=== PATIENT | female | born 1980 | race Asian ===

== ENCOUNTER 2016-10-21 07:56 | Emergency (ER) | payer OTHER ==
[2016-10-21 08:00] VITALS: BMI 36.1
[2016-10-21] MEDS ORDERED: SODIUM CHLORIDE 1,000 ML IV STA (08:21)
[2016-10-21] MEDS ORDERED: morphine CARPU-JECT 4 MG/1 ML DISP.SYRIN IVPUSH ONE (08:49)
[2016-10-21] MEDS ORDERED: KETOROLAC TROMETHAMINE 30 MG/1 ML VIAL IVPUSH ONE (08:49)
--- NOTE | 2016-10-21 08:49 | PDOC ---
History of Present Illness - History of Present Illness Initial Comments: 10/21/16 09:00 The patient is a year old with a past medical hx of fatty liver who presents to the ED complaining of left lower back pain for 4 days. The patient states the pain has been progressively worsening and is a 9/10. She notes she has associated fever, hematuria, nausea, and vomiting. She has had the nausea and vomiting for two days. She states she has been taking over the counter medication for the pain. She notes she had an endoscopy in the past, which showed the presence of an ulcer. She denies any trauma to her back or falls. LMP 09/24/16. The patient denies hematuria, frequency The patient denies abdominal pain The patient denies chest pain, SOB Allergies: Copper Social: Denies tobacco, alcohol, drug use Surgical: fibroids, appendectomy, cholecystectomy, tonsilectomy PCP: Dr. Lomeli <Radha Gonzalez - Last Filed: 10/21/16 10:37> - General History Source: Patient Exam Limitations: No Limitations <Gisele Rogers - Last Filed: 10/24/16 10:02> - General Chief Complaint: Pain Stated Complaint: BACK PAIN Time Seen by Provider: 10/21/16 08:20 Past History <Radha Gonzalez - Last Filed: 10/21/16 10:37> - Past Medical History Anemia: No Asthma: No Cancer: No Cardiac Disorders: No CVA: No COPD: No CHF: No Dementia: No Diabetes: No GI Disorders: Yes (ESOPHAGITIS,GERD,GASTRITIS) Disorders: No HTN: No Hypercholesterolemia: Yes Liver Disease: Yes (CHRONIC NONALCOHILC LIVER DISEASE) Seizures: No Thyroid Disease: No - Surgical History Abdominal Surgery: No Appendectomy: Yes Cardiac Surgery: No Cholecystectomy: Yes Lung Surgery: No Neurologic Surgery: No Orthopedic Surgery: No - Immunization History Td Vaccination: Yes Immunization Up to Date: Yes - Psycho/Social/Smoking Cessation Hx Anxiety: No Suicidal Ideation: No Smoking Status: No Smoking History: Never smoked Have you smoked in the past 12 months: No Number of Cigarettes Smoked Daily: 0 Hx Alcohol Use: No Drug/Substance Use Hx: No Substance Use Type: None Hx Substance Use Treatment: No <Gisele Rogers - Last Filed: 10/24/16 10:02> - Past Medical History Allergies/Adverse Reactions: Allergies Allergy/AdvReac Type Severity Reaction Status Date / Time copper [Copper] Allergy Rash Verified 10/21/16 08:00 Home Medications: Ambulatory Orders Lidocaine 5% Patch [Lidoderm Patch -] 1 patch TP DAILY PRN #30 patch 10/21/16 Methocarbamol [Robaxin -] 500 mg PO TID #21 tablet 10/21/16 Naproxen [Naprosyn -] 500 mg PO BID PRN #14 tablet 10/21/16 Oxycodone HCl/Acetaminophen [Percocet 5-325 mg Tablet -] 1 tab PO TID PRN #9 tablet MDD 3 10/21/16 Review of Systems - Review of Systems Able to Perform ROS?: Yes Comments:: 10/21/16 09:01 GENERAL/CONSTITUTIONAL: +Fever. No: chills, weakness, loss of appetite. HEAD, EYES, EARS, NOSE AND THROAT: No: change in vision, ear pain, discharge, sore throat, throat swelling. CARDIOVASCULAR: No: chest pain, lightheadedness, palpitations, syncope RESPIRATORY: No: cough, shortness of breath, wheezing, hemoptysis, stridor. GASTROINTESTINAL: +Nausea, vomiting. No: abdominal cramping, diarrhea, rectal bleeding, constipation. GENITOURINARY: +Hematuria. No: dysuria, frequency, urgency, flank pain. MUSCULOSKELETAL: +Left lower back pain. No: neck pain, joint pain, muscle swelling SKIN: No: lesions, pallor, rash or easy bruising. NEUROLOGIC: No: headache, vertigo, paresthesias, weakness ENDOCRINE: No: unexplained weight gain or loss HEMATOLOGIC/LYMPHATIC: No: anemia, easy bleeding, swelling nodes <Radha Gonzalez - Last Filed: 10/21/16 10:37> *Physical Exam - Vital Signs Last Vital Signs Temp Pulse Resp BP Pulse Ox 97.5 F L 98 H 20 130/103 98 10/21/16 07:57 10/21/16 07:57 10/21/16 07:57 10/21/16 07:57 10/21/16 07:57 - Physical Exam Comments: 10/21/16 09:01 GENERAL: The patient is in no acute distress. HEAD: Normal with no signs of trauma. EYES: PERRLA, EOMI, sclera anicteric, conjunctiva clear. ENT: Ears normal, nares patent, oropharynx clear without exudates. Moist mucous membranes. NECK: Normal range of motion, supple without lymphadenopathy, JVD, or masses. LUNGS: Breath sounds equal, clear to auscultation bilaterally. No wheezes, and no crackles. HEART:Regular rate and rhythm, normal S1 and S2 without murmur, rub or gallop. ABDOMEN: Soft, nontender, normoactive bowel sounds. No guarding, no rebound. EXTREMITIES: Normal range of motion, no edema. No clubbing or cyanosis. No erythema, or tenderness. NEUROLOGICAL: Cranial nerves II through XII grossly intact. Normal speech. No focal neurological deficits. MUSCULOSKELETAL: Back nontender to palpation, no CVA tenderness SKIN: Warm, Dry, normal turgor, no rashes or lesions noted. <Radha Gonzalez - Last Filed: 10/21/16 10:37> - Vital Signs Last Vital Signs Temp Pulse Resp BP Pulse Ox 97.5 F L 98 H 20 130/103 98 10/21/16 07:57 10/21/16 07:57 10/21/16 07:57 10/21/16 07:57 10/21/16 07:57 <Gisele Rogers - Last Filed: 10/24/16 10:02> ED Treatment Course - LABORATORY CBC & Chemistry Diagram: 10/21/16 08:40 10/21/16 08:40 - RADIOLOGY Radiograph Interpretation: 10/21/16 10:38 CT Abd/Pelv Impression: No CT evidence of urolithiasis or obstructive uropathy. Diffuse hepatic steatosis. Right hepatic lobe hemangioma without obvious interval change. Status post cholecystectomy. Bilateral ovarian cysts. Reported By: Colt Couch MD 10/21/16 1031 <Radha Gonzalez - Last Filed: 10/21/16 10:37> - LABORATORY CBC & Chemistry Diagram: 10/21/16 08:40 10/21/16 08:40 <Gisele Rogers - Last Filed: 10/24/16 10:02> Medical Decision Making - Medical Decision Making 10/21/16 08:48 A portion of this note was documented by scribe services under my direction. I have reviewed the details of the note, within reason, and agree with the documentation with the following case summary and management plan written by me. Nursing documentation reviewed and incorporated into medical decision making 36 yo F presenting to the ER with left flank/lower back pain Symptoms have been present for the past 4 days No associated fevers or chills No trauma Pain worse today Painful with movement/bending 10/21/16 09:47 Laboratory Tests 10/21/16 10/21/16 10/21/16 08:40 08:40 08:40 WBC 13.0 H Hgb 14.9 Hct 44.2 Plt Count 339 BUN 11 D Creatinine 0.6 Urine Blood 1+ H Urine Nitrite Negative Ur Leukocyte Esterase Trace H Pending Spiral CT 10/21/16 11:[address]: No CT evidence of urolithiasis or obstructive uropathy, diffuse hepatic steatosis, right hepatic lobe and hemangioma, status post cholecystotomy, bilateral ovarian cysts. Will discharge patient home. Will ask patient to take Motrin, Robaxin, Lidoderm patches for pain. Follow-up with primary care physician Dr. lomeli. Patient given copies of all of her results. Return to the ER for any other concerns or complaints. Clinical impression: musculoskeletal pain <Gisele Rogers - Last Filed: 10/24/16 10:02> *DC/Admit/Observation/Transfer - Attestations Scribe Attestion: 10/21/16 09:00 Documentation prepared by Radha Gonzalez, acting as medical housekeeper for Gisele Rogers MD/. <Radha Gonzalez - Last Filed: 10/21/16 10:37> - Discharge Dispostion Admit: No <Gisele Rogers - Last Filed: 10/24/16 10:02> Diagnosis at time of Disposition: Musculoskeletal pain - Discharge Dispostion Disposition: HOME Condition at time of disposition: Improved - Prescriptions Prescriptions: Lidocaine 5% Patch [Lidoderm Patch -] 1 patch TP DAILY PRN #30 patch PRN Reason: Pain Naproxen [Naprosyn -] 500 mg PO BID PRN #14 tablet PRN Reason: Pain Oxycodone HCl/Acetaminophen [Percocet 5-325 mg Tablet -] 1 tab PO TID PRN #9 tablet MDD 3 PRN Reason: Severe Pain Methocarbamol [Robaxin -] 500 mg PO TID #21 tablet - Referrals Referrals: Radha Lomeli MD [Primary Care Provider] - - Patient Instructions Printed Discharge Instructions: DI for Musculoskeletal Pain Additional Instructions: Violette I am sorry that you are having pain Please take pain medications as prescribed Please follow up with your primary care physician Return to the ER for any other concerns or complaints Please monitor yourself for fevers or chills - Post Discharge Activity Work/School Note: Back to Work
[2016-10-21] MEDS ORDERED: morphine CARPU-JECT 4 MG/1 ML DISP.SYRIN ONE (09:02)
[2016-10-21 09:04] LABS: BASOPHIL 0.9 % (0-2.0); EOSINOPHIL 1.6 % (0-4.5); MCH 29.4 pg (25.7-33.7); MCHC 33.7 g/dl (32.0-36.0); MEAN PLT VOLUME 7.6 fl (7.5-11.1); NEUTROPHILS 68.1 % (42.8-82.8); PLATELET COUNT 339 K/MM3 (134-434); RDW 13.1 % (11.6-15.6)
[2016-10-21 09:20] LABS: URINE APPEARANCE CLEAR; URINE BILIRUBIN NEGATIVE (NEGATIVE); URINE COLOR LTYELLOW; URINE GLUCOSE (UA) NEGATIVE (NEGATIVE); URINE KETONE NEGATIVE (NEGATIVE); URINE NITRITE NEGATIVE (NEGATIVE); URINE PROTEIN NEGATIVE (NEGATIVE); URINE UROBILINOGEN NEGATIVE E.U./dl (0.2-1.0)
[2016-10-21 09:22] LABS: URINE BLOOD 1+ (NEGATIVE); URINE LEUK ESTERASE TRACE (NEGATIVE)
[2016-10-21 09:27] LABS: ALBUMIN 3.8 g/dl (3.4-5.0); ANION GAP 5 (8-16); CALCIUM 8.7 mg/dL (8.5-10.1); CO2 28 mmol/L (21-32); GLUCOSE,RANDOM 104 mg/dL (74-106)
[2016-10-21 09:30] LABS: ALK PHOS 131 U/L (45-117); BILIRUBIN,TOTAL 0.4 mg/dL (0.2-1.0); CREATININE 0.6 mg/dL (0.55-1.02); SGOT/AST 13 U/L (15-37); SGPT/ALT 30 U/L (12-78); TOT PROT 7.5 g/dl (6.4-8.2)
[2016-10-21 09:35] LABS: URINE BACTERIA RARE /hpf (NONE SEEN); URINE MUCUS RARE; URINE RBC 2 /hpf (0-3); URINE WBC 1 /hpf (3-5)
[2016-10-21] MEDS ORDERED: KETOROLAC TROMETHAMINE 30 MG/1 ML VIAL ONE (11:53)
[2016-10-21 12:08] VITALS: BP 118/83; PULSE 72; TEMP 97.9
== END 2016-10-21 12:09 | disposition home or self-care (01) ==
LOC: JER 07:56
DX: M54.5 Low back pain (principal)
CPT/HCPCS: 36415; 74176; 80053; 81003; 81015; 84703; 85025; 87086; 99284-25

== ENCOUNTER 2016-12-04 17:35 | Emergency (ER) | payer OTHER ==
[2016-12-04 17:48] VITALS: BP 150/90; PULSE 95; TEMP 98.5; BMI 36.1
--- NOTE | 2016-12-04 18:39 | PDOC ---
History of Present Illness <Yumiko Carlisle - Last Filed: 12/04/16 23:22> - History of Present Illness Initial Comments: 12/04/16 19:19 Patient is a 36 year old female with significant medical hx of HTN, HLD, migraines, TMJ, chronic liver disease, esophagitis, and GERD who is presenting to the ED complaining of chronic headache that has worsened today. Patient reports having intermittent headache chronically for the past two years. Her headache is localized to the front and states that the pain keeps returning. She 's seen a pain managements specialist and a neurologist in the past for her headache. The patient denies any nausea, vomiting, blurry vision, visual changes , photophobia, sensory changes, weakness, problems eating, fever, or chills. The patient also has a secondary complaint of high blood pressure. She saw Dr. Dean 8 days ago and had her blood pressure medications changed. Surgical Hx: Appendectomy, cholecystectomy, tonsillectomy, myomectomy Social Hx: Denies tobacco use, alcohol use and recreational drug use <Joyce Grimm - Last Filed: 12/04/16 23:39> - General Chief Complaint: Blood Pressure Problem Stated Complaint: HIGH BP/LIGHTHEADED/PALPITATIONS/BLURRY Time Seen by Provider: 12/04/16 17:48 Past History - Past Medical History Anemia: No Asthma: No Cancer: No Cardiac Disorders: No CVA: No COPD: No CHF: No Dementia: No Diabetes: No GI Disorders: Yes (ESOPHAGITIS,GERD,GASTRITIS) Disorders: No HTN: Yes Hypercholesterolemia: Yes Liver Disease: Yes (CHRONIC NONALCOHILC LIVER DISEASE) Seizures: No Thyroid Disease: No - Surgical History Abdominal Surgery: No Appendectomy: Yes Cardiac Surgery: No Cholecystectomy: Yes Lung Surgery: No Neurologic Surgery: No Orthopedic Surgery: No - Immunization History Td Vaccination: Yes Immunization Up to Date: Yes - Psycho/Social/Smoking Cessation Hx Anxiety: No Suicidal Ideation: No Smoking Status: No Smoking History: Never smoked Have you smoked in the past 12 months: No Number of Cigarettes Smoked Daily: 0 Information on smoking cessation initiated: No Hx Alcohol Use: No Drug/Substance Use Hx: No Substance Use Type: None Hx Substance Use Treatment: No <Yumiko Carlisle - Last Filed: 12/04/16 23:22> <Joyce Grimm - Last Filed: 12/04/16 23:39> - Past Medical History Allergies/Adverse Reactions: Allergies Allergy/AdvReac Type Severity Reaction Status Date / Time copper [Copper] Allergy Rash Verified 12/04/16 17:37 Home Medications: Ambulatory Orders Acetaminophen/Caffeine/Butalb [Fioricet -] 1 tab PO Q6H PRN #20 tablet MDD 4 Atorvastatin Ca [Lipitor] 20 mg PO HS 12/04/16 Cholecalciferol (Vitamin D3) [Vitamin D3] 2,000 unit PO DAILY 12/04/16 Lisinopril 5 mg PO DAILY 12/04/16 Review of Systems - Review of Systems Comments:: 12/04/16 19:27 CONSTITUTIONAL: Absent: fever, chills, diaphoresis, generalized weakness, malaise, loss of appetite HEENT: Absent: rhinorrhea, nasal congestion, throat pain, throat swelling, difficulty swallowing, mouth swelling, ear pain, eye pain, blurry vision CARDIOVASCULAR: Present: high blood pressure Absent: palpitations, lightheadedness, chest pain, syncope, irregular heart rate , peripheral edema RESPIRATORY: Absent: cough, shortness of breath, dyspnea with exertion, orthopnea, wheezing, stridor, hemoptysis GASTROINTESTINAL: Absent: abdominal pain, abdominal distension, nausea, vomiting, diarrhea, constipation, melena, hematochezia GENITOURINARY: Absent: dysuria, frequency, urgency, hesitancy, hematuria, flank pain, genital pain MUSCULOSKELETAL: Absent: myalgia, arthralgia, joint swelling SKIN: Absent: rash, itching, pallor HEMATOLOGIC/IMMUNOLOGIC: Absent: easy bleeding, easy bruising, lymphadenopathy, frequent infections ENDOCRINE: Absent: unexplained weight gain, unexplained weight loss, heat intolerance, cold intolerance NEUROLOGIC: Present: headache Absent: focal weakness or paresthesia, dizziness, unsteady gait, seizure, mental status changes, bladder or bowel incontinence. PSYCHIATRIC: Absent: anxiety, depression, suicidal or homicidal ideation, hallucinations <Joyce Grimm - Last Filed: 12/04/16 23:39> *Physical Exam - Vital Signs Last Vital Signs Temp Pulse Resp BP Pulse Ox 98.5 F 95 H 18 150/90 100 12/04/16 17:39 12/04/16 17:39 12/04/16 17:39 12/04/16 17:39 12/04/16 17:39 <Yumiko Carlisle - Last Filed: 12/04/16 23:22> - Vital Signs Last Vital Signs Temp Pulse Resp BP Pulse Ox 98.5 F 95 H 18 150/90 100 12/04/16 17:39 12/04/16 17:39 12/04/16 17:39 12/04/16 17:39 12/04/16 17:39 - Physical Exam Comments: 12/04/16 19:29 GENERAL: Well developed, well nourished. Awake and alert. No acute distress. HEENT: Normocephalic, atraumatic. PERRLA, EOMI. No conjunctival pallor. Sclera are non- icteric. Moist mucous membranes. Oropharynx is clear. NECK: Supple. Full ROM. No JVD. Carotid pulses 2+ and symmetric, without bruits. No thyromegaly. No lymphadenopathy. CARDIOVASCULAR: Regular rate and rhythm. No murmurs, rubs, or gallops. Distal pulses are 2+ and symmetric. PULMONARY: No evidence of respiratory distress. Lungs clear to auscultation bilaterally. No wheezing, rales or rhonchi. ABDOMINAL: Soft. Non-tender. Non-distended. No rebound or guarding. No organomegaly. Normoactive bowel sounds. MUSCULOSKELETAL: Normal range of motion at all joints. No bony deformities or tenderness. No CVA tenderness. EXTREMITIES: No cyanosis. No clubbing. No edema. No calf tenderness. SKIN: Warm and dry. Normal capillary refill. No rashes. No jaundice. NEUROLOGICAL: Alert, awake, appropriate. Cranial nerves 2-12 intact. Normal speech. Gait is normal without ataxia. PSYCHIATRIC: Cooperative. Good eye contact. Appropriate mood and affect. <Joyce Grimm - Last Filed: 12/04/16 23:39> ED Treatment Course - LABORATORY CBC & Chemistry Diagram: 12/04/16 20:20 12/04/16 20:20 <Yumiko Carlisle - Last Filed: 12/04/16 23:22> - LABORATORY CBC & Chemistry Diagram: 12/04/16 20:20 12/04/16 20:20 - ADDITIONAL ORDERS Additional order review: Laboratory Results 12/04/16 18:45 Urine HCG, Qual Negative - RADIOLOGY Radiograph Interpretation: 12/04/16 23:[address] Negative exam. No discrete noncontrast CT abnormality is identified. There has been no definite interval change in comparison to a prior CT exam of . Follow-up imaging as clinically indicated. The partially imaged paranasal sinuses demonstrate no opacification. Impression: As discussed above. Reported By: Colt Couch MD Head CT Impression: No definite CT abnormality is identified. Follow-up imaging as clinically indicated. Reported By: Colt Couch MD <Joyce Grimm - Last Filed: 12/04/16 23:39> Medical Decision Making - Medical Decision Making 12/04/16 22:47 36 yo female who has had headaches in the past but presents because her symptoms were worsening -she also states she has had paraspinal cervical tenderness since she fell a month ago -no fever,no vomiting -no gross focal deficits -pt states her headaches are no longer responding to her usual medications -labs unremarkable 12/04/16 23:17 ct scan of head: negative exam ct scan cervical spine: no ct abnormality IMP- migraine headache plan-follow up with neurology <Yumiko Carlisle - Last Filed: 12/04/16 23:22> *DC/Admit/Observation/Transfer <Yumiko Carlisle - Last Filed: 12/04/16 23:22> - Attestations Scribe Attestion: 12/04/16 19:30 Documentation prepared by Joyce Grimm, acting as medical records supervisor for Yumiko Carlisle MD. <Joyce Grimm - Last Filed: 12/04/16 23:39> Diagnosis at time of Disposition: Neck muscle spasm Migraine Qualifiers: Migraine type: unspecified Status migrainosus presence: without status migrainosus Intractability: not intractable Qualified Code(s): G43.909 - Migraine, unspecified, not intractable, without status migrainosus - Discharge Dispostion Disposition: HOME Condition at time of disposition: Stable - Prescriptions Prescriptions: Acetaminophen/Caffeine/Butalb [Fioricet -] 1 tab PO Q6H PRN #20 tablet MDD 4 PRN Reason: Headache - Referrals Referrals: Radha Dean MD [Primary Care Provider] - Hanane Castañeda MD [Staff Physician] - - Patient Instructions Printed Discharge Instructions: DI for Hormonal and Tension Headaches, DI for Neck Pain Additional Instructions: please follow up with the neurologist Continue to take your medications as already prescribed by your physician
[2016-12-04] MEDS ORDERED: METOCLOPRAMIDE HCL INJECTION 10 MG/2 ML VIAL IVPUSH ONE (19:50)
[2016-12-04] MEDS ORDERED: DEXAMETHASONE SOD PHOSPHATE 10 MG/1 ML VIAL IVPB ONE (19:51)
[2016-12-04] MEDS ORDERED: SODIUM CHLORIDE 1,000 ML IV STA (19:51)
[2016-12-04] MEDS ORDERED: METOCLOPRAMIDE HCL INJECTION 10 MG/2 ML VIAL ONE (20:14)
[2016-12-04] MEDS ORDERED: DEXAMETHASONE SOD PHOSPHATE 10 MG/1 ML VIAL ONE (20:14)
[2016-12-04 20:40] LABS: BASOPHIL 0.9 % (0-2.0); EOSINOPHIL 1.8 % (0-4.5); MCH 29.2 pg (25.7-33.7); MCHC 33.9 g/dl (32.0-36.0); MEAN CELL VOLUME 86.2 fl (80-96); MEAN PLT VOLUME 7.4 fl (7.5-11.1); NEUTROPHILS 64.7 % (42.8-82.8); PLATELET COUNT 357 K/MM3 (134-434); RDW 12.9 % (11.6-15.6); WHITE BLOOD COUNT 13.5 K/mm3 (4.0-10.0)
[2016-12-04 21:10] LABS: ALBUMIN 3.9 g/dl (3.4-5.0); ANION GAP 7 (8-16); CO2 28 mmol/L (21-32); CREATININE 0.6 mg/dL (0.55-1.02); GLUCOSE,RANDOM 91 mg/dL (74-106); SGPT/ALT 37 U/L (12-78)
[2016-12-04 21:12] LABS: ALK PHOS 153 U/L (45-117); BILIRUBIN,TOTAL 0.2 mg/dL (0.2-1.0); TOT PROT 7.5 g/dl (6.4-8.2)
[2016-12-04 21:14] LABS: SGOT/AST 17 U/L (15-37)
[2016-12-04] MEDS ORDERED: ACETAMINOPHEN/CAFFEINE/BUTALBITAL 1 TAB PO ONE (23:46)
[2016-12-04] MEDS ORDERED: ACETAMINOPHEN/CAFFEINE/BUTALBITAL 1 TAB ONE (23:58)
== END 2016-12-05 00:25 | disposition home or self-care (01) ==
LOC: JER 17:35
PROC: 3E033GC Introduction of Other Therapeutic Substance into Peripheral Vein, Percutaneous Approach (ICD-10-PCS; principal; 2016-12-04)
PROC: 3E0333Z Introduction of Anti-inflammatory into Peripheral Vein, Percutaneous Approach (ICD-10-PCS; 2016-12-04)
DX: G43.909 Migraine, unspecified, not intractable, without status migrainosus (principal); M62.838 Other muscle spasm; I10 Essential (primary) hypertension; E78.00 Pure hypercholesterolemia, unspecified; K21.9 Gastro-esophageal reflux disease without esophagitis
CPT/HCPCS: 36415; 70450-TC; 72125-TC; 80053; 84703; 85025; 96374; 96375; 99282-25

== ENCOUNTER 2017-04-10 18:59 | Emergency (ER) | payer OTHER ==
[2017-04-10 19:06] VITALS: BP 129/81; PULSE 96; TEMP 97.9; BMI 36.2
[2017-04-10] MEDS ORDERED: KETOROLAC TROMETHAMINE 60 MG/2 ML VIAL IM ONE (19:59)
[2017-04-10] MEDS ORDERED: KETOROLAC TROMETHAMINE 60 MG/2 ML VIAL ONE (20:01)
--- NOTE | 2017-04-10 20:02 | PDOC ---
History of Present Illness - General History Source: Patient Exam Limitations: No Limitations - History of Present Illness Initial Comments: 04/10/17 20:15 The patient is a 36 year old female, with a significant past medical history of hypertension, hyperlipidemia, and migraines, who presents with atraumatic right knee pain for 1 week. Patient reports increased swelling at the right knee. She reports shes been limping secondary to right knee pain. Today, the patient wrapped her knee with an RIVER bandage with no relief of pain.She denies any trauma, strenuous activity, heavy lifting, or exercise change. Pt reports she has been taking Aleve for the pain with no relief. She denies any recent travel. No history of problems with joints. Allergies: None reported PCP: Dr. Radha Dean <Gunner Lawler - Last Filed: 04/10/17 20:15> - General History Source: Patient Exam Limitations: No Limitations <Anisa Merrill - Last Filed: 04/10/17 20:25> - General Chief Complaint: Pain Stated Complaint: SWOLLEN RT LEG Time Seen by Provider: 04/10/17 19:26 Past History <Gunner Lawler - Last Filed: 04/10/17 20:15> - Past Medical History Anemia: No Asthma: No Cancer: No Cardiac Disorders: No CVA: No COPD: No CHF: No Dementia: No Diabetes: No GI Disorders: Yes (ESOPHAGITIS,GERD,GASTRITIS) Disorders: No HTN: Yes Hypercholesterolemia: Yes Liver Disease: Yes (CHRONIC NONALCOHILC LIVER DISEASE) Seizures: No Thyroid Disease: No - Surgical History Abdominal Surgery: No Appendectomy: Yes Cardiac Surgery: No Cholecystectomy: Yes Lung Surgery: No Neurologic Surgery: No Orthopedic Surgery: No - Immunization History Td Vaccination: Yes Immunization Up to Date: Yes - Psycho/Social/Smoking Cessation Hx Anxiety: No Suicidal Ideation: No Smoking Status: No Smoking History: Never smoked Have you smoked in the past 12 months: No Number of Cigarettes Smoked Daily: 0 Information on smoking cessation initiated: No Hx Alcohol Use: No Drug/Substance Use Hx: No Substance Use Type: None Hx Substance Use Treatment: No <Anisa Merrill - Last Filed: 04/10/17 20:25> - Past Medical History Allergies/Adverse Reactions: Allergies Allergy/AdvReac Type Severity Reaction Status Date / Time copper [Copper] Allergy Rash Verified 04/10/17 19:06 Home Medications: Ambulatory Orders Atorvastatin Ca [Lipitor] 20 mg PO HS 12/04/16 Cholecalciferol (Vitamin D3) [Vitamin D3] 2,000 unit PO DAILY 12/04/16 Lisinopril 5 mg PO DAILY 12/04/16 Gabapentin 300 mg PO ASDIR 04/10/17 Pramipexole Di-HCl [Mirapex] 1 mg PO ASDIR 04/10/17 Review of Systems - Review of Systems Musculoskeletal: Yes: Symptoms Reported, See HPI, Joint Pain, Joint Swelling, Other (Right knee pain and associated swelling). No: Back Pain, Muscle Weakness , Joint Stiffness Neurological: No: Numbness, Tingling Hematologic/Lymphatic: No: Blood Clots All Other Systems: Reviewed and Negative <Gunner Lawler - Last Filed: 04/10/17 20:15> *Physical Exam - Vital Signs Last Vital Signs Temp Pulse Resp BP Pulse Ox 97.9 F 96 H 19 129/81 98 04/10/17 19:04 04/10/17 19:04 04/10/17 19:04 04/10/17 19:04 04/10/17 19:04 - Physical Exam General Appearance: Yes: Nourished, Appropriately Dressed. No: Apparent Distress Respiratory/Chest: positive: Lungs Clear, Normal Breath Sounds Cardiovascular: positive: Regular Rhythm, Regular Rate Vascular Pulses: Dorsalis-Pedis (R): 2+, Doralis-Pedis (L): 2+ Musculoskeletal: positive: Normal Inspection Extremity: positive: Normal Capillary Refill, Normal Inspection ( No swelling. Mild tenderness reproduce along medial and lateral aspects of knee with worse tenderness in posterior Fossa. No crepitus or step-offs. Patella is normal. Range of motion is intact. Walk s with limp but stable. Neurovascularly intact distal to knees), Normal Range of Motion. negative: Calf Tenderness, Erythema Integumentary: positive: Normal Color, Dry, Warm Neurologic: positive: therapist occupational II-XII NML intact, Fully Oriented, Alert, Normal Mood/ Affect, Normal Response, Motor Strength 5/5 <Gunner Lawler - Last Filed: 04/10/17 20:15> - Vital Signs Last Vital Signs Temp Pulse Resp BP Pulse Ox 97.9 F 96 H 19 129/81 98 07/04/17 19:04 04/10/17 19:04 04/10/17 19:04 04/10/17 19:04 04/10/17 19:04 <Anisa Merrill - Last Filed: 04/10/17 20:25> ED Treatment Course - Medications Given in the ED: ED Medications Discontinued Medications Generic Name Dose Route Start Last Admin Trade Name Shakaq PRN Reason Stop Dose Admin Ketorolac Tromethamine 60 mg 04/10/17 19:59 04/10/17 20:09 Toradol Injection - IM 04/10/17 20:00 60 mg ONCE ONE Administration <Gunner Lawler - Last Filed: 04/10/17 20:15> Progress Note - Progress Note Progress Note: Knee strain Lucrecia understands x-rays not indicated as his soft tissue problem. Immobilizer placed, NSAIDs encouraged and given dose of Toradol here. Will follow-up with orthopedist this week for further evaluation and testing as needed. <Anisa Merrill - Last Filed: 04/10/17 20:25> *DC/Admit/Observation/Transfer - Attestations Scribe Attestion: 04/10/17 20:20 Documentation prepared by Gunner Lawler, acting as medical accountant for Anisa Merrill NP. <Gunner Lawler - Last Filed: 04/10/17 20:15> - Discharge Dispostion Admit: No <Anisa Merrill - Last Filed: 04/10/17 20:25> Diagnosis at time of Disposition: Strain of right knee Qualifiers: Encounter type: initial encounter Qualified Code(s): S86.911A - Strain of unspecified muscle(s) and tendon(s) at lower leg level, right leg, initial encounter - Discharge Dispostion Disposition: HOME Condition at time of disposition: Stable - Referrals Referrals: Radha Dean MD [Primary Care Provider] - Kaz Lechuga MD [Staff Physician] - - Patient Instructions Printed Discharge Instructions: DI for Knee Sprain Additional Instructions: Rest, ice to area on and off for 15 minutes 4-6 times a day Avoid heavy lifting or exercise until pain and swelling is resolved or until further directed Keep area highly elevated to reduce swelling Use splints/River wrap as directed Followup with orthopedist in one to 2 days if not improving, if significantly improved may wait one week for followup with orthopedist May use ibuprofen 2-200 mg tablets every 6 hours as needed for pain
== END 2017-04-10 20:23 | disposition home or self-care (01) ==
LOC: JERFT 18:59
PROC: 3E0233Z Introduction of Anti-inflammatory into Muscle, Percutaneous Approach (ICD-10-PCS; principal; 2017-04-10)
DX: S86.911A Strain of unspecified muscle(s) and tendon(s) at lower leg level, right leg, initial encounter (principal); I10 Essential (primary) hypertension; E78.5 Hyperlipidemia, unspecified; G43.909 Migraine, unspecified, not intractable, without status migrainosus; X58.XXXA Exposure to other specified factors, initial encounter; Y93.89 Activity, other specified; Y92.89 Other specified places as the place of occurrence of the external cause
CPT/HCPCS: 96372; 99281-25

== ENCOUNTER 2017-10-01 14:50 | Emergency (ER) | payer OTHER ==
[2017-10-01 14:53] VITALS: BP 158/90; PULSE 100; TEMP 98.6; BMI 37.0
[2017-10-01 15:32] LABS: URINE APPEARANCE SLCLOUDY; URINE BILIRUBIN NEGATIVE (NEGATIVE); URINE BLOOD 1+ (NEGATIVE); URINE COLOR LTYELLOW; URINE GLUCOSE (UA) NEGATIVE (NEGATIVE); URINE KETONE NEGATIVE (NEGATIVE); URINE NITRITE NEGATIVE (NEGATIVE); URINE PROTEIN NEGATIVE (NEGATIVE); URINE UROBILINOGEN NEGATIVE mg/dL (0.2-1.0)
--- NOTE | 2017-10-01 15:33 | PDOC ---
History of Present Illness - General Chief Complaint: Lightheaded Stated Complaint: VOMITING, Time Seen by Provider: 10/01/17 15:20 History Source: Patient Exam Limitations: No Limitations - History of Present Illness Initial Comments: 10/01/17 15:28 Patient came to emergency department for evaluation of dizziness since yesterday. suffers from sinusitis and a cold for the past few days. Has been using Tylenol only for pain relief. But became concerned about the dizziness. was so much so did not drive and took a taxi to the emergency department. Denies fever, denies purulent drainage from nose but has some congestion worse on the right than the left ear and clear drainage from nose. States also has frontal fullness worse on the right than the left and congestion. Denies cough, denies any nausea but has some mild generalized epigastric pain. Denies dysuria, no problems with bowel no nausea vomiting diarrhea or constipation. Denies possibility of Timing/Duration: unsure, 24 hours Past History - Travel Traveled outside of the country in the last 30 days: No Close contact w/someone who was outside of country & ill: No - Past Medical History Allergies/Adverse Reactions: Allergies Allergy/AdvReac Type Severity Reaction Status Date / Time copper [Copper] Allergy Rash Verified 10/01/17 14:52 Home Medications: Ambulatory Orders Amox-Tr/K Cl [Augmentin 875Mg Tablet] 1 tab PO BID #20 tablet 10/01/17 Anemia: No Asthma: No Cancer: No Cardiac Disorders: No CVA: No COPD: No CHF: No Dementia: No Diabetes: No GI Disorders: Yes (ESOPHAGITIS,GERD,GASTRITIS) Disorders: No HTN: Yes Hypercholesterolemia: Yes Liver Disease: Yes (CHRONIC NONALCOHILC LIVER DISEASE) Seizures: No Thyroid Disease: No - Surgical History Abdominal Surgery: No Appendectomy: Yes Cardiac Surgery: No Cholecystectomy: Yes Lung Surgery: No Neurologic Surgery: No Orthopedic Surgery: No - Immunization History Td Vaccination: Yes Immunization Up to Date: Yes - Suicide/Smoking/Psychosocial Hx Smoking Status: No Smoking History: Never smoked Have you smoked in the past 12 months: No Number of Cigarettes Smoked Daily: 0 Hx Alcohol Use: No Drug/Substance Use Hx: No Substance Use Type: None Hx Substance Use Treatment: No Review of Systems - Review of Systems Able to Perform ROS?: Yes Is the patient limited [place] proficient: Yes Constitutional: Yes: Symptoms Reported, See HPI, Malaise HEENTM: Yes: Symptoms Reported, See HPI, Throat Swelling. No: Blurred Vision, Tearing, Recent change in vision Respiratory: Yes: Symptoms reported, See HPI, Cough, Shortness of Breath. No: Wheezing ABD/GI: Yes: See HPI. No: Symptoms Reported : No: Symptoms Reported Musculoskeletal: Yes: Symptoms Reported Integumentary: Yes: See HPI. No: Symptoms Reported Neurological: Yes: Symptoms reported, See HPI, Headache All Other Systems: Reviewed and Negative *Physical Exam - Vital Signs Last Vital Signs Temp Pulse Resp BP Pulse Ox 98.6 F 100 H 18 158/90 97 10/01/17 14:52 10/01/17 14:52 10/01/17 14:52 10/01/17 14:52 10/01/17 14:52 - Physical Exam General Appearance: Yes: Nourished, Appropriately Dressed, Mild Distress HEENT: positive: AMBER, Normal ENT Inspection, Nasal Congestion, Rhinorrhea, Sinus Tenderness (worse on the right side). negative: TMs Normal (right TM congested and landmarks mildly dulled, left TM intact with good landmarks), Pharynx Normal Neck: positive: Supple. negative: Tender, Lymphadenopathy (R), Lymphadenopathy (L) Respiratory/Chest: positive: Lungs Clear, Normal Breath Sounds Gastrointestinal/Abdominal: positive: Normal Bowel Sounds, Soft. negative: Tender Musculoskeletal: positive: Normal Inspection Extremity: positive: Normal Capillary Refill, Normal Inspection, Normal Range of Motion Integumentary: positive: Normal Color, Dry, Warm, Pale Neurologic: positive: product safety administrator II-XII NML intact, Fully Oriented, Alert, Normal Mood/ Affect, Normal Response, Motor Strength 5/5, Other (negative bear in a test, no nystagmus, no reproducible tenderness with head movement although feels some mild fullness one lying flat.) Medical Decision Making - Medical Decision Making 10/01/17 15:34 Mild vertigo, probably related to a sinus fullness/congestion possible infection. Will obtain UCG and sent for CT to rule out significant 10/01/17 17:28 X-ray shows maxillary sinusitis, will treat with Augmentin and conservative measures. Have follow-up with PMD in the next 2 days. *DC/Admit/Observation/Transfer Diagnosis at time of Disposition: Sinusitis, acute Qualifiers: Sinusitis location: maxillary Recurrence: not specified as recurrent Qualified Code(s): J01.00 - Acute maxillary sinusitis, unspecified - Discharge Dispostion Disposition: HOME Condition at time of disposition: Stable Admit: No - Referrals - Patient Instructions Printed Discharge Instructions: DI for Sinusitis Additional Instructions: Rest, drink lots of fluids: Teas, water, soups Saltwater gargles. Consider humidifier in room at night Steamy showers/seem to face break up mucus Avoid contact with allergens, exposure to pollens, close windows on a windy day Lots of handwashing and good hygiene Continue [id number]-[id number] medications for symptomatic relief- may use allergic eyedrops for itching I Continue antihistamines daily until pollen season is over; Zyrtec, Claritin, Tequila during the daytime and Benadryl at nighttime as will make sleepy Tylenol or Motrin for fever and pain Into new Augmentin as directed Followup with private physician in one to 2 days as needed Consider following up with an freight rate clerk/founder and president for skin testing and possible allergy shots Return to emergency department for worsened symptoms, fevers, dehydration - Post Discharge Activity Forms/Work/School Notes: Back to Work
[2017-10-01 15:35] LABS: URINE LEUK ESTERASE 2+ (NEGATIVE)
[2017-10-01] MEDS ORDERED: MECLIZINE HCL 25 MG TABLET (FP) PO ONE (15:35)
[2017-10-01 15:36] LABS: URINE HYALINE CAST 1 /lpf; URINE MUCUS RARE; URINE RBC 5 /hpf (0-3); URINE WBC 6 /hpf (3-5)
[2017-10-01] MEDS ORDERED: MECLIZINE HCL 25 MG TABLET (FP) ONE (15:46)
[2017-10-01 18:56] LABS: URINE LEUK ESTERASE Negative (NEGATIVE)
== END 2017-10-01 17:40 | disposition home or self-care (01) ==
LOC: JER 14:50
DX: J01.00 Acute maxillary sinusitis, unspecified (principal)
CPT/HCPCS: 70486-TC; 81003; 81015; 84703; 99282-25

== ENCOUNTER 2018-02-18 15:52 | Emergency (ER) | payer OTHER ==
[2018-02-18 15:59] VITALS: BP 140/79; PULSE 97; TEMP 98.2; BMI 33.8
--- NOTE | 2018-02-18 15:59 | PDOC ---
Rapid Medical Evaluation Chief Complaint: Pain, Acute Time Seen by Provider: 02/18/18 15:56 Medical Evaluation: Allergies Allergy/AdvReac Type Severity Reaction Status Date / Time copper [Copper] Allergy Rash Verified 02/18/18 15:56 02/18/18 15:57 I have performed a brief in-person evaluation of this patient. The patient presents with a chief complaint of: left elbow pain s/p striking it on sink Pertinent physical exam findings: pain worsens with supination of left forearm. No bony tenderness. I have ordered the following: upreg, xray, tylenol The patient will proceed to the ED for further evaluation. Discharge Disposition - Diagnosis Elbow pain, left - Referrals - Patient Instructions - Post Discharge Activity
[2018-02-18] MEDS ORDERED: ACETAMINOPHEN 325 MG TABLET (FP) PO ONE (16:00)
[2018-02-18] MEDS ORDERED: ACETAMINOPHEN 325 MG TABLET (FP) ONE (16:58)
--- NOTE | 2018-02-18 17:19 | PDOC ---
History of Present Illness - General Chief Complaint: Pain, Acute Stated Complaint: LT ARM PAIN Time Seen by Provider: 02/18/18 15:56 - History of Present Illness Initial Comments: 37-year-old female presents for evaluation of left elbow pain. She states she banged her elbow into the sink about week ago. Since that time her elbow is become stiff and painful. She points to the lateral epicondyle as the area of discomfort. Pain is described as achy exacerbated with motion relieved with rest free of radiation. No prior problems with left elbow. She does have problems gripping and grasping. 02/18/18 17:18 Past History - Past Medical History Allergies/Adverse Reactions: Allergies Allergy/AdvReac Type Severity Reaction Status Date / Time copper [Copper] Allergy Rash Verified 02/18/18 15:56 Home Medications: Ambulatory Orders NK [No Known Home Medication] 02/18/18 Anemia: No Asthma: No Cancer: No Cardiac Disorders: No CVA: No COPD: No CHF: No Dementia: No Diabetes: No GI Disorders: Yes (ESOPHAGITIS,GERD,GASTRITIS) Disorders: No HTN: Yes Hypercholesterolemia: Yes Liver Disease: Yes (CHRONIC NONALCOHILC LIVER DISEASE) Seizures: No Thyroid Disease: No - Surgical History Abdominal Surgery: No Appendectomy: Yes Cardiac Surgery: No Cholecystectomy: Yes Lung Surgery: No Neurologic Surgery: No Orthopedic Surgery: No - Immunization History Td Vaccination: Yes Immunization Up to Date: Yes - Suicide/Smoking/Psychosocial Hx Smoking Status: No Smoking History: Never smoked Have you smoked in the past 12 months: No Number of Cigarettes Smoked Daily: 0 Information on smoking cessation initiated: No Hx Alcohol Use: No Drug/Substance Use Hx: No Substance Use Type: None Hx Substance Use Treatment: No Review of Systems - Review of Systems Musculoskeletal: Yes: Joint Pain All Other Systems: Reviewed and Negative *Physical Exam - Vital Signs Last Vital Signs Temp Pulse Resp BP Pulse Ox 98.2 F 97 H 16 140/79 100 02/18/18 15:57 02/18/18 15:57 02/18/18 15:57 02/18/18 15:57 02/18/18 15:57 - Physical Exam Comments: Double skin color and temperature are normal. She has full range of motion. With stiffness a terminal ranges. There is tenderness over the lateral epicondyle. Her upper extremity compartments are soft and nontender. She has no gross sensorimotor deficits. She is are vastly intact. No evidence of instability. 02/18/18 17:19 ED Treatment Course - ADDITIONAL ORDERS Additional order review: Laboratory Results 02/18/18 16:17 Urine HCG, Qual Negative - Medications Given in the ED: ED Medications Discontinued Medications Generic Name Dose Route Start Last Admin Trade Name Ivan PRN Reason Stop Dose Admin Acetaminophen 650 mg 02/18/18 16:00 02/18/18 16:57 Tylenol - PO 02/18/18 16:01 650 mg ONCE ONE Administration *DC/Admit/Observation/Transfer Diagnosis at time of Disposition: Elbow pain, left, Contusion of elbow - Discharge Dispostion Disposition: HOME Condition at time of disposition: Stable Decision to Admit order: No - Referrals Referrals: Ricardo Bhandari MD [Primary Care Provider] - Ritesh Mccormack MD [Staff Physician] - - Patient Instructions Printed Discharge Instructions: DI for Contusion, Contusion Additional Instructions: This is a bruise on your elbow. Return to the emergency room if symptoms worsen or go unresolved prior to follow-up with orthopedic surgery. - Post Discharge Activity
== END 2018-02-18 17:48 | disposition home or self-care (01) ==
LOC: JERFT 15:52
DX: S50.02XA Contusion of left elbow, initial encounter (principal); W22.8XXA Striking against or struck by other objects, initial encounter; Y93.89 Activity, other specified; Y92.038 Other place in apartment as the place of occurrence of the external cause; Y99.8 Other external cause status
CPT/HCPCS: 73070-TC-LT-FY; 84703; 99281-25

== ENCOUNTER 2018-05-27 11:16 | Day surgery (SDC) | payer OTHER ==
[2018-05-27 12:11] VITALS: BMI 35.6
[2018-05-27 13:40] VITALS: TEMP 98
--- NOTE | 2018-05-27 13:43 | PROC ---
Endoscopy Procedure Endoscopy procedure completed. Please see scanned procedure report.
[2018-05-27 14:42] VITALS: BP 132/81; PULSE 82
--- NOTE | 2018-05-30 13:10 | PATH ---
Surgical Pathology Report Patient Name: DORA ALCARAZ [facility]. Rec. #: [id number] /Age/Gender: 1980 (Age: 37) / F Account: [id number] Location: [facility]-ENDOSCOPY Taken: 05/27/2018 Received: 05/28/2018 Reported: 05/30/2018 Physicians: Aaron Du M.D. Specimen(s) Received A: BX DUODENUM B: BX ANTRUM AND BODY C: ASCENDING COLON POLYP Clinical History Postoperative diagnosis: Gastritis, fundus polyp, colon polyp Final Diagnosis A. DUODENUM, BIOPSY: DUODENAL MUCOSA WITH NO PATHOLOGIC FINDINGS. B. ANTRUM AND BODY (FUNDUS POLYP), BIOPSY: POLYPOID GASTRIC MUCOSA SHOWING XANTHOMA. (SEE NOTE) MILD CHRONIC GASTRITIS. IMMUNOSTAIN IS NEGATIVE FOR H.PYLORI ORGANISMS. Note: The xanthoma is comprised of aggregates of histiocytes within the lamina propria which are positive for CD 68 and negative for cytokeratin AE 1/3 (performed at [place], [place]: [id number]). This find supports the diagnosis. C. ASCENDING COLON, POLYP, POLYPECTOMY: TUBULAR ADENOMA. Electronically Signed Anisha Urbian M.D. Gross Description A. Received in formalin, labeled "biopsy duodenum" are 2 elise, irregular portions of soft tissue averaging 0.3 cm. in greatest dimension. The specimens are submitted in toto in one cassette. B. Received in formalin, labeled "biopsy antrum and body" are 2 elise, irregular portions of soft tissue averaging 0.3 cm. in greatest dimension. The specimens are submitted in toto in one cassette. C. Received in formalin, labeled "polyp ascending colon" is a elise, polypoid portion of soft tissue measuring 0.7 cm in greatest dimension. The specimen is submitted in toto in one cassette. [facility]/05/28/2018
== END 2018-05-27 14:42 | disposition home or self-care (01) ==
LOC: JASU-ENDO 11:16
PROVIDERS: ATTEND Internal Medicine Gastroenterology
PROC: 3E0H8GC Introduction of Other Therapeutic Substance into Lower GI, Via Natural or Artificial Opening Endoscopic (ICD-10-PCS; 2018-05-27)
PROC: 0DBK8ZX Excision of Ascending Colon, Via Natural or Artificial Opening Endoscopic, Diagnostic (ICD-10-PCS; principal; 2018-05-27 12:00)
DX: Z12.11 Encounter for screening for malignant neoplasm of colon (principal); Z83.71 Family history of colonic polyps
CPT/HCPCS: 84703; 88305-TC; 88342-TC

== ENCOUNTER 2018-08-15 15:45 | Emergency (ER) | payer OTHER ==
[2018-08-15 16:00] VITALS: TEMP 98.2; BMI 37.8
--- NOTE | 2018-08-15 16:03 | PDOC ---
Rapid Medical Evaluation Chief Complaint: Pain, Acute Time Seen by Provider: 08/15/18 16:00 Medical Evaluation: Allergies Allergy/AdvReac Type Severity Reaction Status Date / Time copper [Copper] Allergy Rash Verified 02/18/18 15:56 Vital Signs Temp Pulse Resp BP Pulse Ox 98.2 F 95 H 18 146/110 H 99 08/15/18 15:54 08/15/18 15:54 08/15/18 15:54 08/15/18 15:54 08/15/18 15:54 08/15/18 16:01 I have performed a brief in-person evaluation of this patient. The patient presents with a chief complaint of: sent by [facility] for urine testing - r/o stones? C/O flank pain x 2 months Pertinent physical exam findings: nontoxic I have ordered the following: Urine The patient will proceed to the ED for further evaluation.
--- NOTE | 2018-08-15 16:30 | PDOC ---
History of Present Illness - General Chief Complaint: Pain, Acute Stated Complaint: kidney pain, chest tightness Time Seen by Provider: 08/15/18 16:00 History Source: Patient Exam Limitations: No Limitations - History of Present Illness Initial Comments: 08/15/18 16:23 The patient is a 38F with a PMH of esophagitis, GERD, gastritis, and colonic polyps s/p resection who presents to the ER with worsening b/l flank pain. The patient states that she's had 1 month of worsening suprapubic abdominal pain which she describes as sharp, intermittent, and radiates to her b/l flanks. The patient states that the pain has worsened acutely today. She was seeing her GI doctor who recommended her to come to the ER. She admits to chills and dysuria. She denies CP but admits to intermittent chest tightness which she cannot describe further. She denies any hx of cancer, DVT's, hemoptysis, long car rides or plane trips, leg swelling, and recent surgery. GI: Harris Nephro: Lita [place] : Esther Neuro: Thomas Past History - Past Medical History Allergies/Adverse Reactions: Allergies Allergy/AdvReac Type Severity Reaction Status Date / Time copper [Copper] Allergy Rash Verified 08/15/18 16:01 Home Medications: Ambulatory Orders NK [No Known Home Medication] 08/15/18 Anemia: No Asthma: No Cancer: No Cardiac Disorders: No CVA: No COPD: No CHF: No Dementia: No Diabetes: No GI Disorders: Yes (ESOPHAGITIS,GERD,GASTRITIS, fatty liver) Disorders: No HTN: Yes Hypercholesterolemia: Yes Liver Disease: Yes (CHRONIC NONALCOHILC LIVER DISEASE) Seizures: No Thyroid Disease: No - Surgical History Abdominal Surgery: No Appendectomy: Yes Cardiac Surgery: No Cholecystectomy: Yes Lung Surgery: No Neurologic Surgery: No Orthopedic Surgery: No - Immunization History Td Vaccination: Yes Immunization Up to Date: Yes - Suicide/Smoking/Psychosocial Hx Smoking Status: No Smoking History: Never smoked Have you smoked in the past 12 months: No Number of Cigarettes Smoked Daily: 0 Information on smoking cessation initiated: No Hx Alcohol Use: No Drug/Substance Use Hx: No Substance Use Type: None Hx Substance Use Treatment: No Review of Systems - Review of Systems Able to Perform ROS?: Yes Comments:: 08/15/18 16:51 GENERAL/CONSTITUTIONAL: No fever or chills. No weakness. HEAD, EYES, EARS, NOSE AND THROAT: No change in vision. No ear pain or discharge. No sore throat. CARDIOVASCULAR: No chest pain, palpitations, or lightheadedness. RESPIRATORY: No cough, wheezing, shortness of breath, or hemoptysis. GASTROINTESTINAL: No nausea, vomiting, diarrhea, constipation, or abdominal pain. GENITOURINARY: Positive for dysuria and flank pain. No frequency, hematuria, or change in urination. MUSCULOSKELETAL: No joint or muscle swelling or pain. No neck or back pain. SKIN: No rash or lesions. NEUROLOGIC: No headache, numbness, tingling, focal weakness, loss of consciousness, or change in strength/sensation. Is the patient limited Urdu proficient: No *Physical Exam - Vital Signs Last Vital Signs Temp Pulse Resp BP Pulse Ox 98.2 F 95 H 18 146/110 H 99 08/15/18 15:54 08/15/18 15:54 08/15/18 15:54 08/15/18 15:54 08/15/18 15:54 - Physical Exam Comments: 08/15/18 16:57 GENERAL: Well developed, well nourished. Awake and alert. No acute distress. HEENT: Normocephalic, atraumatic. Hearing grossly normal. Moist mucous membranes. PERRLA, EOMI. No conjunctival pallor. Sclera are non-icteric. NECK: Supple. Full ROM. CARDIOVASCULAR: Regular rate and rhythm. No murmurs, rubs, or gallops. PULMONARY: No evidence of respiratory distress. Lungs clear to auscultation bilaterally. No wheezing, rales or rhonchi. ABDOMINAL: Soft. TTP over epigastrium, suprapubic abdomen. Non-distended. No rebound or guarding. GENITOURINARY: CVA tenderness bilaterally. MUSCULOSKELETAL: Normal range of motion at all joints. No bony deformities or tenderness. EXTREMITIES: No cyanosis. No clubbing. No edema. No calf tenderness or swelling. SKIN: Warm and dry. Normal capillary refill. No rashes. No jaundice. NEUROLOGICAL: Alert, awake, appropriate. Cranial nerves 2-12 grossly intact. Normal speech. Gait is normal without ataxia. PSYCHIATRIC: Cooperative. Good eye contact. Appropriate mood and affect. ED Treatment Course - LABORATORY CBC & Chemistry Diagram: 08/15/18 17:19 08/15/18 17:19 Medical Decision Making - Medical Decision Making 08/15/18 17:04 The patient is a 38F with a PMH of gastritis, esophagitis, and GERD who presents to the ER with complaints of worsening flank pain concerned for renal CA, nephrolithiasis, pyelo, UTI, pancreatitis, RUQ pathology. Pending labs and will perform CTAP with IV contrast. Pt otherwise stable and well appearing. 08/15/18 20:00 CT impression: No CT findings of acute pathology are identified. A 2.3 cm involuting right ovarian cyst/follicle is noted. The remainder of the exam demonstrates no definite interval change in comparison to a prior CT exam of 07/11/2016. Diffuse hepatic steatosis. Stable 4 x 2.4 cm right hepatic lobe hemangioma. Status post cholecystectomy. Very small umbilical hernia containing fat only. CBC, CMP WNL. UA shows trace LE with 2 WBC. Will d/w plate developer for UTI tx. *DC/Admit/Observation/Transfer Diagnosis at time of Disposition: Flank pain Abdominal pain Qualifiers: Abdominal location: generalized Qualified Code(s): R10.84 - Generalized abdominal pain - Discharge Dispostion Disposition: HOME Condition at time of disposition: Stable Decision to Admit order: No - Referrals Referrals: Ricardo Bhandari MD [Primary Care Provider] - Andrea Phillips MD [Staff Physician] - - Patient Instructions Printed Discharge Instructions: DI for Flank Pain Additional Instructions: Please follow up with your primary care physician in 2-3 days. Please also follow up with Dr. Alcantara within 1 week. Please return to the ER if you have any signs or symptoms of chest pain, shortness of breath, uncontrollable fever, chills, nausea, vomiting, numbness, tingling, or weakness in any part of your body, changes in vision, or slurred speech. Please return to the ER if symptoms persist, worsen, or new symptoms arise. - Post Discharge Activity
[2018-08-15] MEDS ORDERED: FAMOTIDINE 20 MG/50 ML IVPB 20 MG/50 ML MG IVPB ONE ×2 (16:53→17:12)
[2018-08-15] MEDS ORDERED: SODIUM CHLORIDE 0.9% 1000 ML INFUS.BAG IV ONE (16:53)
[2018-08-15 16:55] LABS: URINE APPEARANCE CLEAR; URINE BILIRUBIN NEGATIVE (<2.0 mg/dL); URINE COLOR YELLOW; URINE GLUCOSE (UA) NEGATIVE (NEGATIVE); URINE KETONE NEGATIVE (NEGATIVE); URINE LEUK ESTERASE TRACE (NEGATIVE); URINE NITRITE NEGATIVE (NEGATIVE); URINE PROTEIN NEGATIVE (NEGATIVE); URINE UROBILINOGEN NEGATIVE mg/dL (0.2-1.0)
[2018-08-15 16:56] LABS: HCG,QUALITATIVE URINE Negative
[2018-08-15 17:13] LABS: EPI CELLS RARE /HPF (FEW); URINE MUCUS MANY
--- NOTE | 2018-08-15 17:22 | PDOC ---
Attending Attestation - [facility] HPI: 08/15/18 17:42 Patient is a 38 year old female with a significant past medical history of esophagitis, GERD, gastritis, and colonic polyps s/p resection, who presents to the ED with complaints of bilateral abdominal pain. Patient reports experiencing suprapubic abdominal pain that she states began x1 month ago and has gradually gotten worse over time, prompting her to come into the ED for further evaluation. She reports abdominal pain is a sharp constant pain that has begun to radiate to her flanks bilaterally. Patient reports seeing her GI physician who advised she come into the ED for evaluation. She reports experiencing associated symptoms of chills and dysuria. Denies chest pain, Sob. Denies nausea, vomiting. Denies contact with sick individuals, out of state travelling. Denies fevers, chills. Denies any other symptoms. Allergies: Copper Social history: No smoking, No alcohol. No illicit drugs. Surgical history: None PMD: Dr. Bhandari - Physicial Exam PE: 08/15/18 17:42 GENERAL: +Obese. Awake, alert, and fully oriented, in no acute distress HEAD: No signs of trauma EYES: PERRLA, EOMI, sclera anicteric, conjunctiva clear ENT: Auricles normal inspection, hearing grossly normal, nares patent, Moist mucosa NECK: Normal ROM, supple, JVD, or masses ABDOMEN: +Diffuse abdominal tenderness. Soft, normoactive bowel sounds. No guarding, no rebound. No masses EXTREMITIES: Normal range of motion, no edema. No clubbing or cyanosis. No cords, erythema, or tenderness NEUROLOGICAL: Cranial nerves II through XII grossly intact. Normal speech, normal gait SKIN: Warm, Dry, normal turgor, no rashes or lesions noted. <Bryan Wyatt - Last Filed: 08/15/18 17:42> - Resident Resident Name: Riccardo Mcduffie - ED Attending Attestation I have performed the following: I have examined & evaluated the patient, The case was reviewed & discussed with the resident, I agree w/resident's findings & plan, Exceptions are as noted - Medical Decision Making 08/15/18 17:18 A portion of this note was documented by scribe services under my direction. I have reviewed the details of the note, within reason, and agree with the documentation with the following case summary and management plan written by me. Patient treated in the ED. Nursing notes are reviewed and incorporated into the medical decision-making. Vital signs reviewed. Peripheral IV access obtained by the nurse, laboratory studies are drawn and sent, reviewed and interpreted by myself. Vital Signs Temp Pulse Resp BP Pulse Ox 98.2 F 95 H 18 146/110 H 99 08/15/18 15:54 08/15/18 15:54 08/15/18 15:54 08/15/18 15:54 08/15/18 15:54 38-year-old female patient with history of GERD and obesity presents with diffuse abdominal pain and bilateral flank pain for approximately 1 month. The patient has been evaluated in outpatient by a hydrologist and referred to a urologist for intermittent flank pains and intermittent hematuria and dysuria. The patient reports that she had a referral for an outpatient ultrasound but has not received the. She denies any fevers or chills. Does report intermittent dysuria and chills. Patient is being evaluated for potential renal cancer as the patient's family has a history of kidney cancer. Several months ago, the patient reportedly had an outpatient endoscopy and colonoscopy that demonstrated polyps that was removed. Reported that it was not cancer that time. Given her diffuse abdominal pain for one month, as well as urological symptoms, we'll need to investigate. We'll obtain a CAT scan abdomen pelvis. Patient came to the ER She had acutely worsening pain. Differential includes cystitis, pyelonephritis, malignancy, colitis, diverticulitis, other acute pathologies. We 'll obtain tests and reassess. 08/15/18 19:12 CBC, BMP 08/15/18 17:19 08/15/18 17:19 CMP Sodium 139 mmol/L (136-145) 08/15/18 17:19 Potassium 4.1 mmol/L (3.5-5.1) 08/15/18 17:19 Chloride 104 mmol/L (98-107) 08/15/18 17:19 Carbon Dioxide 25 mmol/L (21-32) 08/15/18 17:19 Anion Gap 10 MMOL/L (8-16) 08/15/18 17:19 BUN 10 mg/dL (7-18) 08/15/18 17:19 Creatinine 0.7 mg/dL (0.55-1.3) 08/15/18 17:19 Creat Clearance w eGFR > 60 (>60) 08/15/18 17:19 Random Glucose 140 mg/dL (74-106) H 08/15/18 17:19 Calcium 9.1 mg/dL (8.5-10.1) 08/15/18 17:19 Total Bilirubin 0.2 mg/dL (0.2-1) 08/15/18 17:19 AST 30 U/L (15-37) 08/15/18 17:19 ALT 35 U/L (13-61) 08/15/18 17:19 Alkaline Phosphatase 133 U/L (45-117) H 08/15/18 17:19 Creatine Kinase 97 IU/L (26-192) 08/15/18 17:19 Troponin I < 0.02 ng/ml (0.00-0.05) 08/15/18 17:19 Total Protein 7.2 g/dl (6.4-8.2) 08/15/18 17:19 Albumin 3.5 g/dl (3.4-5.0) 08/15/18 17:19 Lipase 138 U/L (73-393) 08/15/18 17:19 Urine Test Results Urine Color Yellow 08/15/18 16:18 Urine Appearance Clear 08/15/18 16:18 Urine pH 5.0 (5.0-8.0) 08/15/18 16:18 Ur Specific [place] 1.024 (1.010-1.035) 08/15/18 16:18 Urine Protein Negative (NEGATIVE) 08/15/18 16:18 Urine Glucose (UA) Negative (NEGATIVE) 08/15/18 16:18 Urine Ketones Negative (NEGATIVE) 08/15/18 16:18 Urine Blood 1+ (NEGATIVE) H 08/15/18 16:18 Urine Nitrite Negative (NEGATIVE) 08/15/18 16:18 Urine Bilirubin Negative (<2.0 mg/dL) 08/15/18 16:18 Ur Leukocyte Esterase Trace (NEGATIVE) 08/15/18 16:18 Ur Epithelial Cells Rare /HPF (FEW) 08/15/18 16:18 Urine Mucus Many 08/15/18 16:18 Trace leukocytoe esterase. Even though urine 2 WBC, she has symptoms. Would treat her with oral antibiotics. Awaiting CT abdomen and pelvis. Pt signed out to oncoming attending Dr. Lane for further management. <Beltran Cordero - Last Filed: 08/15/18 19:13> Heart Score/ECG Review #1 ECG reviewed & interpreted by me at: 17:00 08/15/18 17:23 NSR 102, no std/stephanie, T wave flat III, normal axis, normal intervals, QTC 422 msec <Beltran Cordero - Last Filed: 08/15/18 19:13>
[2018-08-15 17:37] LABS: BASO % 1.1 % (0-2.0); EOS % 1.8 % (0-4.5); HEMATOCRIT 42.1 % (32.4-45.2); HEMOGLOBIN 14.2 GM/dL (10.7-15.3); LYMPH % 29.5 % (8-40); MCH 28.9 pg (25.7-33.7); MCHC 33.7 g/dl (32.0-36.0); MEAN CELL VOLUME 85.8 fl (80-96); MEAN PLT VOLUME 7.6 fl (7.5-11.1); MONO % 5.9 % (3.8-10.2); NEUT % 61.7 % (42.8-82.8); PLATELET COUNT 381 K/MM3 (134-434); RBC 4.91 M/mm3 (3.60-5.2); RDW 13.3 % (11.6-15.6); WHITE BLOOD COUNT 11.3 K/mm3 (4.0-10.0)
[2018-08-15 18:16] LABS: ALBUMIN 3.5 g/dl (3.4-5.0); ALK PHOS 133 U/L (45-117); ANION GAP 10 MMOL/L (8-16); BILIRUBIN,TOTAL 0.2 mg/dL (0.2-1); BLOOD UREA NITROGEN 10 mg/dL (7-18); CALCIUM 9.1 mg/dL (8.5-10.1); CHLORIDE 104 mmol/L (98-107); CO2 25 mmol/L (21-32); CREATININE 0.7 mg/dL (0.55-1.3); GLUCOSE,RANDOM 140 mg/dL (74-106); LIPASE 138 U/L (73-393); POTASSIUM 4.1 mmol/L (3.5-5.1); SGOT/AST 30 U/L (15-37); SGPT/ALT 35 U/L (13-61); SODIUM 139 mmol/L (136-145); TOT PROT 7.2 g/dl (6.4-8.2)
[2018-08-15 20:51] VITALS: BP 142/72; PULSE 89
--- NOTE | 2018-08-16 07:43 | EKG ---
Test Reason : Blood Pressure : / mmHG Vent. Rate : 102 BPM Atrial Rate : 102 BPM P-R Int : 124 ms QRS Dur : 072 ms QT Int : 324 ms P-R-T Axes : 039 005 026 degrees QTc Int : 422 ms SINUS TACHYCARDIA WHEN COMPARED WITH ECG OF 15-AUG-2018 15:57, NO SIGNIFICANT CHANGE WAS FOUND Confirmed by ROBERT PITTS MD ([id number]) on 08/16/2018 7:42:34 AM Referred By: Confirmed By:ROBERT PITTS MD
--- NOTE | 2018-08-19 10:50 | EKG ---
Test Reason : Blood Pressure : / mmHG Vent. Rate : 100 BPM Atrial Rate : 100 BPM P-R Int : 124 ms QRS Dur : 072 ms QT Int : 340 ms P-R-T Axes : 025 011 032 degrees QTc Int : 438 ms NORMAL SINUS RHYTHM CANNOT RULE OUT ANTERIOR INFARCT , AGE UNDETERMINED ABNORMAL ECG WHEN COMPARED WITH ECG OF 23-SEP-2013 14:18, NO SIGNIFICANT CHANGE WAS FOUND Confirmed by NERY LOPEZ MD ([id number]) on 08/19/2018 10:49:52 AM Referred By: Confirmed By:NERY LOPEZ MD
== END 2018-08-15 20:51 | disposition home or self-care (01) ==
LOC: JER 15:45
PROC: 3E033GC Introduction of Other Therapeutic Substance into Peripheral Vein, Percutaneous Approach (ICD-10-PCS; principal; 2018-08-15)
DX: R10.30 Lower abdominal pain, unspecified (principal); N83.201 Unspecified ovarian cyst, right side; K76.89 Other specified diseases of liver
CPT/HCPCS: 36415; 74177-TC; 80053; 81003; 81015; 82550; 83690; 84484; 84703; 85025; 87086; 93005; 93010; 99283-25; J7030

== ENCOUNTER 2018-09-27 15:45 | Emergency (ER) | payer OTHER ==
[2018-09-27 15:49] VITALS: BP 128/86; PULSE 100; TEMP 98.3; BMI 38.8
--- NOTE | 2018-09-27 17:18 | PDOC ---
History of Present Illness - General Chief Complaint: Sore Throat Stated Complaint: Sore Throat Time Seen by Provider: 09/27/18 17:12 History Source: Patient Exam Limitations: No Limitations - History of Present Illness Initial Comments: 09/27/18 17:22 Patient came for evaluation of sore throat pain on and off for the past 10 days. Denies fever, has been using Claritin-D for postnasal drainage at states he does not feel is improving situation. Has no earache no drainage from nose. No one at home is ill. States as a moist cough and feels some tightness with deep inspiration and some pleuritic type chest pain. Using [id number] medications and conservative measures for relief Timing/Duration: unsure Severity: mild Associated Symptoms: reports: denies symptoms Past History - Travel Traveled outside of the country in the last 30 days: No Close contact w/someone who was outside of country & ill: No - Past Medical History Allergies/Adverse Reactions: Allergies Allergy/AdvReac Type Severity Reaction Status Date / Time copper [Copper] Allergy Rash Verified 09/27/18 17:07 Home Medications: Ambulatory Orders Albuterol Sulfate Inhaler - [Ventolin HFA Inhaler -] 1 - 2 inh PO Q4H #1 inhaler 09/27/18 Azithromycin [Zithromax -] 250 mg PO UTDICT #6 tab 09/27/18 Anemia: No Asthma: No Cancer: No Cardiac Disorders: No CVA: No COPD: No CHF: No Dementia: No Diabetes: No GI Disorders: Yes (ESOPHAGITIS,GERD,GASTRITIS, fatty liver) Disorders: No HTN: Yes Hypercholesterolemia: Yes Liver Disease: Yes (CHRONIC NONALCOHILC LIVER DISEASE) Seizures: No Thyroid Disease: No - Surgical History Abdominal Surgery: No Appendectomy: Yes Cardiac Surgery: No Cholecystectomy: Yes Lung Surgery: No Neurologic Surgery: No Orthopedic Surgery: No - Immunization History Td Vaccination: Yes Immunization Up to Date: Yes - Suicide/Smoking/Psychosocial Hx Smoking Status: No Smoking History: Never smoked Have you smoked in the past 12 months: No Number of Cigarettes Smoked Daily: 0 Hx Alcohol Use: No Drug/Substance Use Hx: No Substance Use Type: None Hx Substance Use Treatment: No Review of Systems - Review of Systems Able to Perform ROS?: Yes Is the patient limited Khmer proficient: Yes Constitutional: Yes: Symptoms Reported, See HPI, Malaise. No: Fever HEENTM: Yes: See HPI. No: Symptoms Reported Respiratory: Yes: Symptoms reported, See HPI, Cough Cardiac (ROS): No: Symptoms Reported ABD/GI: Yes: See HPI. No: Symptoms Reported, Nausea : No: Symptoms Reported Musculoskeletal: No: Symptoms Reported Integumentary: Yes: Symptoms Reported Neurological: Yes: Symptoms reported, See HPI, Headache All Other Systems: Reviewed and Negative *Physical Exam - Vital Signs Last Vital Signs Temp Pulse Resp BP Pulse Ox 98.3 F 100 H 20 128/86 99 09/27/18 15:47 09/27/18 15:47 09/27/18 15:47 09/27/18 15:47 09/27/18 15:47 - Physical Exam General Appearance: Yes: Nourished, Appropriately Dressed, Apparent Distress, Mild Distress HEENT: positive: AMBER, Normal Voice (congested), TMs Normal (adjustable landmarks easily visualized), Pharynx Normal, Nasal Congestion, Rhinorrhea. negative: Normal ENT Inspection, Pharyngeal Erythema Neck: positive: Supple. negative: Tender, Lymphadenopathy (R), Lymphadenopathy (L) Respiratory/Chest: positive: Lungs Clear (but diminished, some tight expiratory wheezing heard worse on the right than the left), Decreased Breath Sounds, Wheezing. negative: Normal Breath Sounds, Respiratory Distress Gastrointestinal/Abdominal: positive: Normal Bowel Sounds, Soft Musculoskeletal: positive: Normal Inspection Extremity: positive: Normal Capillary Refill, Normal Inspection Integumentary: positive: Normal Color, Dry, Warm, Pale Neurologic: positive: chart changer II-XII NML intact, Fully Oriented, Alert, Normal Mood/ Affect, Normal Response, Motor Strength 5/5 Moderate Sedation - Procedure Monitoring Vital Signs: Procedure Monitoring Vital Signs Temperature 98.3 F 09/27/18 15:47 Pulse Rate 100 H 09/27/18 15:47 Respiratory Rate 20 09/27/18 15:47 Blood Pressure 128/86 09/27/18 15:47 O2 Sat by Pulse Oximetry (%) 99 09/27/18 15:47 Medical Decision Making - Medical Decision Making 09/27/18 17:51 Much improved breath sounds after albuterol nebulizer, patient reports feeling better aerated. We'll treat with albuterol inhaler and Z-Nathaniel for progressive bronchitis *DC/Admit/Observation/Transfer Diagnosis at time of Disposition: Upper respiratory infection, viral - Discharge Dispostion Disposition: HOME Condition at time of disposition: Stable Decision to Admit order: No - Prescriptions Prescriptions: Albuterol Sulfate Inhaler - [Ventolin HFA Inhaler -] 1 - 2 inh PO Q4H #1 inhaler Azithromycin [Zithromax -] 250 mg PO UTDICT #6 tab - Referrals Referrals: Ricardo Bhandari MD [Primary Care Provider] - - Patient Instructions Printed Discharge Instructions: DI for Viral Upper Respiratory Infection -- Adult Additional Instructions: Rest, drink lots of fluids: Teas, water, soups, Pedialyte Saltwater gargles Steamy showers/seem to face break up mucus Avoid contact with others until fevers and cough resolved Lots of handwashing and good hygiene Continue xahz-aop-eblncly medications for symptomatic relief Tylenol or Motrin for fever and pain Continue albuterol nebulizers every 4-6 hours for the next 2 days then as needed for continued cough Start Zithromax as directed Followup with private physician in one to 2 days Return to emergency department / pediatric hospital for worsened symptoms, fevers, dehydration - Post Discharge Activity
[2018-09-27] MEDS ORDERED: ALBUTEROL SO4 2.5/IPRATROPIUM 0.5 INH SOL 3 ML VIAL.NEB. NEB ONE ×2 (17:20→17:26)
== END 2018-09-27 17:53 | disposition home or self-care (01) ==
LOC: JERFT 15:45
PROC: 3E0F7GC Introduction of Other Therapeutic Substance into Respiratory Tract, Via Natural or Artificial Opening (ICD-10-PCS; principal; 2018-09-27)
DX: J06.9 Acute upper respiratory infection, unspecified (principal); B97.89 Other viral agents as the cause of diseases classified elsewhere; I10 Essential (primary) hypertension; E78.00 Pure hypercholesterolemia, unspecified; Z87.19 Personal history of other diseases of the digestive system; K76.0 Fatty (change of) liver, not elsewhere classified
CPT/HCPCS: 99281-25

== ENCOUNTER 2019-04-16 21:27 | Emergency (ER) | payer OTHER ==
--- NOTE | 2019-04-16 21:31 | PDOC ---
Rapid Medical Evaluation Time Seen by Provider: 04/16/19 21:30 Medical Evaluation: Allergies Allergy/AdvReac Type Severity Reaction Status Date / Time copper [Copper] Allergy Rash Verified 09/27/18 17:07 04/16/19 21:30 HPI: B neck swelling and SOB x 3 weeks PE: periauricular and R sided supracavicular adenopathy ORDERS: LABS U Preg Discharge Disposition - Diagnosis Adenopathy - Referrals - Patient Instructions - Post Discharge Activity
[2019-04-16 21:34] VITALS: BMI 38.2
[2019-04-16] MEDS ORDERED: SODIUM CHLORIDE 1,000 ML IV STA (23:03)
[2019-04-16 23:33] LABS: BASO % 0.9 % (0-2.0); EOS % 1.5 % (0-4.5); LYMPH % 23.6 % (8-40); MCH 28.6 pg (25.7-33.7); MCHC 33.2 g/dl (32.0-36.0); MEAN CELL VOLUME 86.1 fl (80-96); PLATELET COUNT 361 K/MM3 (134-434); RBC 4.88 M/mm3 (3.60-5.2); RDW 13.5 % (11.6-15.6); WHITE BLOOD COUNT 13.5 K/mm3 (4.0-10.0)
[2019-04-16 23:53] LABS: URINE APPEARANCE CLEAR; URINE BILIRUBIN NEGATIVE (NEGATIVE); URINE COLOR YELLOW; URINE GLUCOSE (UA) NEGATIVE (NEGATIVE); URINE KETONE NEGATIVE (NEGATIVE); URINE LEUK ESTERASE NEGATIVE (NEGATIVE); URINE NITRITE NEGATIVE (NEGATIVE); URINE PROTEIN NEGATIVE (NEGATIVE); URINE UROBILINOGEN 0.2 mg/dL (0.2-1.0)
[2019-04-17] LABS: ALBUMIN 3.5 g/dl (3.4-5.0); BILIRUBIN,TOTAL 0.2 mg/dL (0.2-1); BLOOD UREA NITROGEN 11.6 mg/dL (7-18); CALCIUM 8.5 mg/dL (8.5-10.1); CREATININE 0.5 mg/dL (0.55-1.3); POTASSIUM 3.8 mmol/L (3.5-5.1); TOT PROT 7.1 g/dl (6.4-8.2)
--- NOTE | 2019-04-17 01:34 | PDOC ---
Documentation entered by Mercedez Novoa SCRIBE, acting as scribe for Brennan Reyez MD. Brennan Reyez MD: This documentation has been prepared by the rakelibeBright Natalie, SCRIBE, under my direction and personally reviewed by me in its entirety. I confirm that the documentation accurately reflects all work, treatment, procedures, and medical decision making performed by me. History of Present Illness - General Chief Complaint: Edema Stated Complaint: STOMACH PAIN/PAIN SWALLOWING Time Seen by Provider: 04/16/19 21:30 History Source: Patient Exam Limitations: No Limitations - History of Present Illness Initial Comments: 04/17/19 00:03 The patient is a 38-year-old female, with a past medical history of HTN, HLD, GERD, gastritis, fatty liver disease, who presents to the ED with 2 weeks of RUQ , RLQ, and RT flank pain. The patient also reports experiencing nausea, vomiting , and diarrhea 1 week ago, no blood noted. The patient denies any fever, chills, or constipation. Denies any chest pain, palpitations, or shortness of breath. Denies any urinary symptoms. Allergies: Copper PCP: Dr. Bhandari Past History - Past Medical History Allergies/Adverse Reactions: Allergies Allergy/AdvReac Type Severity Reaction Status Date / Time copper [Copper] Allergy Rash Verified 09/27/18 17:07 Home Medications: Ambulatory Orders Albuterol Sulfate Inhaler - [Ventolin HFA Inhaler -] 1 - 2 inh PO Q4H #1 inhaler 09/27/18 Naproxen Sod/Diphenhydramine [Aleve Pm Caplet] 1 each PO HS 04/16/19 Anemia: No Asthma: No Cancer: No Cardiac Disorders: No CVA: No COPD: No CHF: No Dementia: No Diabetes: No GI Disorders: Yes (ESOPHAGITIS,GERD,GASTRITIS, fatty liver) Disorders: No HTN: Yes Hypercholesterolemia: Yes Liver Disease: Yes (CHRONIC NONALCOHILC LIVER DISEASE) Seizures: No Thyroid Disease: No - Surgical History Abdominal Surgery: No Appendectomy: Yes Cardiac Surgery: No Cholecystectomy: Yes Lung Surgery: No Neurologic Surgery: No Orthopedic Surgery: No - Immunization History Td Vaccination: Yes Immunization Up to Date: Yes - Suicide/Smoking/Psychosocial Hx Smoking Status: No Smoking History: Unknown if ever smoked Have you smoked in the past 12 months: No Number of Cigarettes Smoked Daily: 0 Information on smoking cessation initiated: No Hx Alcohol Use: No Drug/Substance Use Hx: No Substance Use Type: None Hx Substance Use Treatment: No Review of Systems - Review of Systems Able to Perform ROS?: Yes Comments:: 04/17/19 00:19 CONSTITUTIONAL: No fever, no chills, no fatigue EYES: No visual changes ENT: No ear pain, no sore throat CARDIOVASCULAR: No chest pain, no palpitations RESPIRATORY: No cough, no SOB GI: (+)Abdominal pain, nausea, vomiting, diarrhea. No constipation. GENITOURINARY: No dysuria, no frequency, no hematuria MUSKULOSKELETAL: (+)RT flank pain. No joint pain. SKIN: No rash NEURO: No headache *Physical Exam - Vital Signs Last Vital Signs Temp Pulse Resp BP Pulse Ox 98.5 F 105 H 16 147/90 100 04/16/19 21:31 04/16/19 21:31 04/16/19 21:31 04/16/19 21:31 04/16/19 21:31 - Physical Exam Comments: 04/17/19 01:32 EXAMINATION CONSTITUTIONAL: alert and awake,Well-appearing; obese; in no apparent distress HEAD: Normocephalic; atraumatic EYES: PERRL; EOM intact ENMT: External appears normal; normal oropharynx; no exudate NECK: Supple; non-tender; no cervical lymphadenopathy CARD: Normal S1, S2; no murmurs, rubs, or gallops RESP: Normal chest excursion with respiration; breath sounds clear and equal bilaterally; no wheezes, rhonchi, or rales ABD: Soft, non-distended; + mild right lower quadrant and right CVA tenderness to palpation; no palpable organomegaly, no palpable hernias EXT: Normal ROM in all four extremities; non-tender to palpation; distal pulses intact SKIN: Warm, dry, no rash NEURO: No focal neurological deficiencies. ED Treatment Course - LABORATORY CBC & Chemistry Diagram: 04/16/19 23:20 04/16/19 23:12 - ADDITIONAL ORDERS Additional order review: Laboratory Results 04/16/19 04/16/19 04/16/19 23:20 23:12 23:12 Sodium 139 Potassium 3.8 Chloride 105 Carbon Dioxide 26 Anion Gap 7 L BUN 11.6 Creatinine 0.5 L Est GFR (CKD-EPI)AfAm 141.30 Est GFR (CKD-EPI)NonAf 121.92 Random Glucose 127 H Calcium 8.5 Total Bilirubin 0.2 AST 17 ALT 35 Alkaline Phosphatase 140 H Total Protein 7.1 Albumin 3.5 Serum , Qual Negative Urine Color Yellow Urine Appearance Clear Urine pH 6.0 Ur Specific [place] 1.018 Urine Protein Negative Urine Glucose (UA) Negative Urine Ketones Negative Urine Blood Negative Urine Nitrite Negative Urine Bilirubin Negative Urine Urobilinogen 0.2 Ur Leukocyte Esterase Negative 04/16/19 23:20 RBC 4.88 MCV 86.1 MCHC 33.2 RDW 13.5 MPV 7.0 L Neutrophils % 68.0 Lymphocytes % 23.6 Monocytes % 6.0 Eosinophils % 1.5 Basophils % 0.9 - RADIOLOGY Radiology Studies Ordered: Category Date Time Status SPIRAL- RENAL-STONE CT [CT] Stat CT Scan 04/17/19 00:35 Taken - Medications Given in the ED: ED Medications Discontinued Medications Generic Name Dose Route Start Last Admin Trade Name Freq PRN Reason Stop Dose Admin Sodium Chloride 1,000 mls @ 1,000 mls/hr 04/16/19 23:03 04/16/19 23:32 Normal Saline - IV 04/17/19 00:02 1,000 mls/hr ASDIR STA Administration Medical Decision Making - Medical Decision Making 04/17/19 01:34 38-year-old female with history of migraines, peptic ulcer disease and hepatic steatosis presents with multiple complaints including diffuse myalgias and arthralgias, facial flushing, neck pain, or pharyngeal erythema, right lower quadrant pain, right flank pain, nausea and vomiting that resolved 1 week prior to arrival. In the ED, patient is awake and alert, afebrile, mildly tachycardic on initial evaluation, with resolution of tachycardia on consequent evaluations. CBC reveals mild leukocytosis with predominance of neutrophils. Will evaluate for possible pyelonephritis. Will obtain a spiral CT. Will reassess. 04/17/19 02:01 Patient reassessed. Patient is resting comfortably, tolerates by mouth. Repeat abdominal exam reveals mild right upper quadrant tenderness to deep palpation only. There is no guarding or rebound. Urinalysis is noted to be within normal limit. Is no evidence of pyuria. CT of abdomen and pelvis reveals no evidence of acute intra-abdominal pathology. Right hepatic lobe scarring versus fatty infiltration is noted. Reassessment of the neck and upper thorax reveals no evidence of significant cervical or supraclavicular lymphadenopathy. I do not suspect acute pharyngitis nor's. Then a, syndrome at this time. Will discharge patient with outpatient follow-up with PMD for further evaluation. *DC/Admit/Observation/Transfer Diagnosis at time of Disposition: Adenopathy, Musculoskeletal pain Abdominal pain Qualifiers: Abdominal location: unspecified location Qualified Code(s): R10.9 - Unspecified abdominal pain - Discharge Dispostion Disposition: HOME Condition at time of disposition: Stable - Referrals Referrals: Ricardo Bhandari MD [Primary Care Provider] - - Patient Instructions Printed Discharge Instructions: DI for Abdominal Pain-Adult Print Language: TAJIK - Post Discharge Activity
[2019-04-17 02:30] VITALS: BP 137/86; PULSE 104; TEMP 99.9
== END 2019-04-17 02:35 | disposition home or self-care (01) ==
LOC: JER 21:27
PROC: 3E0337Z Introduction of Electrolytic and Water Balance Substance into Peripheral Vein, Percutaneous Approach (ICD-10-PCS; principal; 2019-04-16)
DX: R10.9 Unspecified abdominal pain (principal); M79.18 Myalgia, other site; R59.9 Enlarged lymph nodes, unspecified; K27.9 Peptic ulcer, site unspecified, unspecified as acute or chronic, without hemorrhage or perforation; K76.0 Fatty (change of) liver, not elsewhere classified
CPT/HCPCS: 36415; 74176-TC; 80053; 81003; 84703; 85025; 87086; 99283-25; J7030

== ENCOUNTER 2019-08-13 16:44 | Emergency (ER) | payer OTHER ==
[2019-08-13] MEDS ORDERED: ACETAMINOPHEN 500 MG TABLET (FP) PO ONE (16:56)
--- NOTE | 2019-08-13 16:56 | PDOC ---
Rapid Medical Evaluation Time Seen by Provider: 08/13/19 16:49 Medical Evaluation: Allergies Allergy/AdvReac Type Severity Reaction Status Date / Time copper [Copper] Allergy Rash Verified 09/27/18 17:07 08/13/19 16:54 CC: cold symptoms x2 days PE: nasal congestion. OP-mildly erythematous. Orders: tylenol, flu Patient will proceed to ER for continued evaluation. Discharge Disposition - Diagnosis Nasal congestion - Referrals - Patient Instructions - Post Discharge Activity
[2019-08-13 16:57] VITALS: BP 141/83; PULSE 100; TEMP 98.3; BMI 36.8
--- NOTE | 2019-08-13 17:31 | PDOC ---
History of Present Illness - General Chief Complaint: Cold Symptoms Stated Complaint: HEADACHE Time Seen by Provider: 08/13/19 16:49 - History of Present Illness Initial Comments: 08/13/19 17:29 3-year-old female with a past medical history of diabetes and fibromyalgia presents for evaluation of 4 days of nasal congestion headache Past History - Past Medical History Allergies/Adverse Reactions: Allergies Allergy/AdvReac Type Severity Reaction Status Date / Time copper [Copper] Allergy Rash Verified 08/13/19 16:57 Home Medications: Ambulatory Orders Albuterol Sulfate Inhaler - [Ventolin HFA Inhaler -] 1 - 2 inh PO Q4H #1 inhaler 09/27/18 Naproxen Sod/Diphenhydramine [Aleve Pm Caplet] 1 each PO HS 04/16/19 Cetirizine HCl/Pseudoephedrine [Zyrtec-D Tablet] 1 each PO DAILY #30 tab.er.12h 08/13/19 Anemia: No Asthma: No Cancer: No Cardiac Disorders: No CVA: No COPD: No CHF: No Dementia: No Diabetes: No GI Disorders: Yes (ESOPHAGITIS,GERD,GASTRITIS, fatty liver) Disorders: No HTN: Yes Hypercholesterolemia: Yes Liver Disease: Yes (CHRONIC NONALCOHILC LIVER DISEASE) Seizures: No Thyroid Disease: No - Surgical History Abdominal Surgery: No Appendectomy: Yes Cardiac Surgery: No Cholecystectomy: Yes Lung Surgery: No Neurologic Surgery: No Orthopedic Surgery: No - Immunization History Td Vaccination: Yes Immunization Up to Date: Yes - Psycho Social/Smoking Cessation Hx Smoking Status: No Smoking History: Never smoked Have you smoked in the past 12 months: No Number of Cigarettes Smoked Daily: 0 Information on smoking cessation initiated: No Hx Alcohol Use: No Drug/Substance Use Hx: No Substance Use Type: None Hx Substance Use Treatment: No Review of Systems - Review of Systems Constitutional: No: Fever HEENTM: Yes: Nose Congestion *Physical Exam - Vital Signs Last Vital Signs Temp Pulse Resp BP Pulse Ox 98.3 F 100 H 19 141/83 96 08/13/19 16:55 08/13/19 16:55 08/13/19 16:55 08/13/19 16:55 08/13/19 16:55 - Physical Exam Comments: 08/13/19 17:29 GENERAL: The patient is awake, alert, and fully oriented, in no acute distress. HEAD: Normal with no signs of trauma. EYES: sclera anicteric, conjunctiva clear. ENT: Ears normal oropharynx normal no erythema or exudate uvula midline NECK: Normal range of motion LUNGS: Breath sounds equal, clear to auscultation bilaterally. No wheezes, and no crackles. HEART: S1 and S2 without murmur, rub or gallop. ABDOMEN: Soft, nontender, normoactive bowel sounds. No guarding, no rebound. No masses. EXTREMITIES: Normal range of motion, no edema. No clubbing or cyanosis. No cords, erythema, or tenderness. NEUROLOGICAL: Cranial nerves II through XII grossly intact. Normal speech, normal gait. PSYCH: Normal mood, normal affect. SKIN: Warm, Dry, normal turgor, no rashes or lesions noted. Medical Decision Making - Medical Decision Making 08/13/19 17:30 Not likely a bacterial sinusitis at this point. Will treat symptoms with antihistamine with decongestion and have patient follow-up with PCP Discharge - Discharge Information Problems reviewed: Yes Clinical Impression/Diagnosis: Nasal congestion, Upper respiratory infection, viral Condition: Stable Disposition: HOME - Admission No - Additional Discharge Information Prescriptions: Cetirizine HCl/Pseudoephedrine [Zyrtec-D Tablet] 1 each PO DAILY #30 tab.er.12h - Follow up/Referral Referrals: Ricardo Bhandari MD [Primary Care Provider] - - Patient Discharge Instructions Additional Instructions: Please take the medication as directed. Return to the emergency room for worsening symptoms. Without fail please follow-up with your primary care physician in 1 to 2 days for further evaluation and treatment options. - Post Discharge Activity
[2019-08-13] MEDS ORDERED: ACETAMINOPHEN 500 MG TABLET (FP) ONE (17:41)
== END 2019-08-13 17:45 | disposition home or self-care (01) ==
LOC: JERFT 16:44
DX: B97.89 Other viral agents as the cause of diseases classified elsewhere (principal); J06.9 Acute upper respiratory infection, unspecified; I10 Essential (primary) hypertension; K76.0 Fatty (change of) liver, not elsewhere classified; Z87.19 Personal history of other diseases of the digestive system; Z91.048 Other nonmedicinal substance allergy status
CPT/HCPCS: 87804; 99281-25

== ENCOUNTER 2019-08-20 10:42 | Day surgery (SDC) | payer OTHER ==
[2019-08-20 11:05] VITALS: TEMP 98.2; BMI 36.8
[2019-08-20] MEDS ORDERED: PROPOFOL 20 ML ONE ×2 (11:41)
[2019-08-20 12:56] VITALS: BP 141/81; PULSE 75
--- NOTE | 2019-08-25 11:53 | PATH ---
Surgical Pathology Report Patient Name: DORA ALCARAZ [facility]. Rec. #: [id number] /Age/Gender: 1980 (Age: 39) / F Account: [id number] Location: [facility] Taken: 08/20/2019 Received: 08/20/2019 Reported: 08/25/2019 Physicians: Brooklyn Muñoz M.D. Specimen(s) Received A: BX SECOND PORTION DUODENUM B: BX GASTRIC ANTRUM C: BX GE JUNCTION Clinical History Abdominal pain Postoperative diagnosis: Gastritis Final Diagnosis A. SECOND PORTION DUODENUM, BIOPSY: DUODENAL MUCOSA WITH NO PATHOLOGIC FINDINGS. B. GASTRIC ANTRUM, BIOPSY: MILD CHRONIC GASTRITIS WITH FEATURES OF REACTIVE GASTROPATHY. IMMUNOSTAIN IS NEGATIVE FOR H. PYLORI ORGANISMS. C. GE JUNCTION, BIOPSY: ESOPHAGO-GASTRIC JUNCTIONAL (SQUAMOCOLUMNAR) MUCOSA SHOWING MILD CHRONIC INFLAMMATION. NEGATIVE FOR INTESTINAL METAPLASIA. Electronically Signed Anisha Urbina M.D. Gross Description A. Received in formalin, labeled "biopsy second portion of duodenum" are 2 elise, irregular portions of soft tissue measuring 0.1 cm and 0.3 cm. in greatest dimension. The specimens are submitted in toto in one cassette. B. Received in formalin, labeled "biopsy gastric ulcer" is a elise, irregular portion of soft tissue measuring 0.3 cm. in greatest dimension. The specimen is submitted in toto in one cassette. C. Received in formalin, labeled "biopsy GE junction" is a elise, irregular portion of soft tissue measuring 0.3 cm. in greatest dimension. The specimen is submitted in toto in one cassette. 08/21/2019 [facility]08/21/2019
== END 2019-08-20 13:10 | disposition home or self-care (01) ==
LOC: FASU-ENDO 10:42
PROVIDERS: ATTEND Internal Medicine Gastroenterology
PROC: 0DB68ZX Excision of Stomach, Via Natural or Artificial Opening Endoscopic, Diagnostic (ICD-10-PCS; 2019-08-20)
PROC: 0DB48ZX Excision of Esophagogastric Junction, Via Natural or Artificial Opening Endoscopic, Diagnostic (ICD-10-PCS; 2019-08-20)
PROC: 0DB98ZX Excision of Duodenum, Via Natural or Artificial Opening Endoscopic, Diagnostic (ICD-10-PCS; principal; 2019-08-20 12:02)
DX: K29.50 Unspecified chronic gastritis without bleeding (principal); K31.9 Disease of stomach and duodenum, unspecified; K20.9 Esophagitis, unspecified; R10.13 Epigastric pain
CPT/HCPCS: 82962; 84703; 88305-TC; 88342-TC

== ENCOUNTER 2021-10-08 22:47 | Emergency (ER) | payer OTHER ==
[2021-10-08 23:09] VITALS: BP 168/95; PULSE 118; TEMP 99.6; BMI 36.8
== END 2021-10-08 23:29 | disposition home or self-care (01) ==
LOC: FER 22:47
DX: U07.1 COVID-19 (principal)
CPT/HCPCS: 87804; 99283-25; C9803; U0003; U0005

== ENCOUNTER 2022-03-06 01:37 | Emergency (ER) | payer OTHER ==
[2022-03-06] MEDS ORDERED: IBUPROFEN 600 MG TABLET (FP) PO ONE ×2 (01:56→02:04)
[2022-03-06 02:17] VITALS: BP 139/80; PULSE 109; TEMP 98.9; BMI 36.3
== END 2022-03-06 02:45 | disposition home or self-care (01) ==
LOC: FER 01:37
DX: S93.401A Sprain of unspecified ligament of right ankle, initial encounter (principal); M25.532 Pain in left wrist; W07.XXXA Fall from chair, initial encounter
CPT/HCPCS: 73110-TC-LT-FY; 73610-TC-RT-FY; 73630-TC-RT-FY; 99284-25

== ENCOUNTER 2022-12-22 00:18 | Emergency (ER) | payer OTHER ==
[2022-12-22] MEDS ORDERED: CYCLOBENZAPRINE HCL 10 MG TABLET (FP) PO ONE (00:52)
[2022-12-22] MEDS ORDERED: IBUPROFEN 400 MG TABLET (FP) PO ONE ×2 (00:52→00:57)
[2022-12-22] MEDS ORDERED: CYCLOBENZAPRINE HCL 5 MG TABLET ONE ×2 (00:57→00:58)
[2022-12-22 01:06] VITALS: BP 127/88; PULSE 93; RESP 18; TEMP 98; BMI 36.3
[2022-12-22 03:41] LABS: PH,URINE 5.5 (5.0-8.0); URINE APPEARANCE CLEAR; URINE BILIRUBIN NEGATIVE (NEGATIVE); URINE COLOR YELLOW; URINE GLUCOSE (UA) NEGATIVE (NEGATIVE); URINE KETONE NEGATIVE (NEGATIVE); URINE LEUK ESTERASE NEGATIVE (NEGATIVE); URINE NITRITE NEGATIVE (NEGATIVE); URINE PROTEIN NEGATIVE (NEGATIVE); URINE UROBILINOGEN 0.2 mg/dL (0.2-1.0)
== END 2022-12-22 01:25 | disposition home or self-care (01) ==
LOC: FER 00:18
DX: M54.50 Low back pain, unspecified (principal)
CPT/HCPCS: 81003; 81025; 99283-25

== ENCOUNTER 2023-02-28 04:25 | Day surgery (SDC) | payer OTHER ==
[2023-02-27 11:55] VITALS: BMI 33.6
[2023-02-28 09:28] VITALS: TEMP 97.8
[2023-02-28 09:36] VITALS: RESP 18
[2023-02-28 09:58] VITALS: BP 101/48; PULSE 87
== END 2023-02-28 10:30 | disposition home or self-care (01) ==
LOC: JASU-ENDO 04:25
PROVIDERS: ATTEND Internal Medicine Gastroenterology
PROC: 0DBH8ZX Excision of Cecum, Via Natural or Artificial Opening Endoscopic, Diagnostic (ICD-10-PCS; principal; 2023-02-28 09:00)
DX: Z12.11 Encounter for screening for malignant neoplasm of colon (principal); D12.0 Benign neoplasm of cecum; Z86.010 Personal history of colon polyps; Z80.0 Family history of malignant neoplasm of digestive organs
CPT/HCPCS: 81025; 82962; 88305-TC

== ENCOUNTER 2023-09-19 09:16 | Day surgery (SDC) | payer OTHER ==
[2023-09-13 16:11] VITALS: BMI 34.0
[2023-09-19 12:17] VITALS: TEMP 97.9
[2023-09-19 12:47] VITALS: BP 102/75; PULSE 84; RESP 19
== END 2023-09-19 11:40 | disposition home or self-care (01) ==
LOC: FASU-ENDO 09:16
PROVIDERS: ATTEND Internal Medicine Gastroenterology
PROC: 0DB68ZX Excision of Stomach, Via Natural or Artificial Opening Endoscopic, Diagnostic (ICD-10-PCS; 2023-09-19)
PROC: 0DB48ZX Excision of Esophagogastric Junction, Via Natural or Artificial Opening Endoscopic, Diagnostic (ICD-10-PCS; 2023-09-19)
PROC: 0DB98ZX Excision of Duodenum, Via Natural or Artificial Opening Endoscopic, Diagnostic (ICD-10-PCS; principal; 2023-09-19 11:06)
DX: K29.50 Unspecified chronic gastritis without bleeding (principal); K21.00 Gastro-esophageal reflux disease with esophagitis, without bleeding; R10.13 Epigastric pain
CPT/HCPCS: 81025; 82962

== ENCOUNTER 2024-06-05 14:38 | Emergency (ER) | payer OTHER ==
[2024-06-05 14:48] VITALS: BP 140/94; PULSE 96; RESP 16; TEMP 98.2; BMI 36.3
[2024-06-05 15:11] LABS: HCG,QUALITATIVE URINE Negative
[2024-06-05] MEDS ORDERED: ACETAMINOPHEN 325 MG TABLET (FP) ONE (15:59)
[2024-06-05] MEDS ORDERED: METHOCARBAMOL 500 MG TABLET ONE (15:59)
[2024-06-05] MEDS ORDERED: LIDOCAINE 5% TOPICAL PATCH ONE (15:59)
[2024-06-05] MEDS: METHOCARBAMOL 500 MG TABLET PO ONE (16:00)
[2024-06-05] MEDS: ACETAMINOPHEN 325 MG TABLET (FP) PO ONE (16:00)
[2024-06-05] MEDS: LIDOCAINE 5% TOPICAL PATCH TP ONE (16:05)
[2024-06-05] MEDS: AZITHROMYCIN 250 MG TABLET PO ONE (18:36)
== END 2024-06-05 18:37 | disposition home or self-care (01) ==
LOC: FER 14:38
DX: D25.9 Leiomyoma of uterus, unspecified (principal); J18.9 Pneumonia, unspecified organism; M54.6 Pain in thoracic spine; R30.0 Dysuria; R10.30 Lower abdominal pain, unspecified
CPT/HCPCS: 71046-TC-FY; 76775-TC; 76856-TC; 81003; 84703; 87086; 99285-25

== ENCOUNTER → 2024-06-11 | Day surgery (SDC) | payer OTHER ==
[2024-05-21 13:57] VITALS: BMI 34.0
[2024-06-11 11:03] VITALS: BP 142/98; PULSE 94; RESP 19; TEMP 97.3
== END | disposition home or self-care (01) ==
LOC: FASU-ENDO 10:47
PROVIDERS: ATTEND Internal Medicine Gastroenterology
PROC: 0DJD8ZZ Inspection of Lower Intestinal Tract, Via Natural or Artificial Opening Endoscopic (ICD-10-PCS; principal; 2024-06-11)
DX: Z53.8 Procedure and treatment not carried out for other reasons (principal)
CPT/HCPCS: 81025; 82962

== ENCOUNTER 2024-07-16 11:12 | Day surgery (SDC) | payer OTHER ==
[2024-07-08 17:09] VITALS: BMI 34.0
[2024-07-16] MEDS ORDERED: LIDOCAINE HCL/PF 2% SDV 5ML VIAL ONE (11:58)
[2024-07-16 12:33] VITALS: RESP 19; TEMP 97
[2024-07-16 12:48] VITALS: BP 132/72; PULSE 72
== END 2024-07-16 12:55 | disposition home or self-care (01) ==
LOC: FASU-ENDO 11:12
PROVIDERS: ATTEND Internal Medicine Gastroenterology
PROC: 0DBH8ZX Excision of Cecum, Via Natural or Artificial Opening Endoscopic, Diagnostic (ICD-10-PCS; 2024-07-16)
PROC: 0DBK8ZX Excision of Ascending Colon, Via Natural or Artificial Opening Endoscopic, Diagnostic (ICD-10-PCS; principal; 2024-07-16 12:02)
DX: Z12.11 Encounter for screening for malignant neoplasm of colon (principal); D12.2 Benign neoplasm of ascending colon; K63.5 Polyp of colon; K64.1 Second degree hemorrhoids
CPT/HCPCS: 81025; 82962; 88305-TC